=== PATIENT | male | born 1960 | race Caucasian/White ===

== ENCOUNTER 2016-04-21 09:55 | Emergency (ER) | payer MEDICAID ==
[~2016-04-21] VITALS: Ht 177.8 cm; Wt 90.7 kg
[~2016-04-21 09:55] MED LIST: ALBUTEROL SULF8.5 GM INH; AZITHROMYCIN250 MG ORAL; CIPROFLOXACIN750 MG ORAL; IBUPROFEN600 MG ORAL; IBUPROFEN800 MG ORAL; METRONIDAZOLE500 MG ORAL; NORCO 5-325 TA1 EACH ORAL; OMEPRAZOLE20 M2 ORAL; TRAMADOL HCL50 MG ORAL; VALIUM10 MG ORAL
[2016-04-21] MEDS ORDERED: Lidocaine 2% 20mg/ml/Epi 0.005mg/ml 20ml vial ONE (10:25)
[2016-04-21] MEDS ORDERED: Lidocaine 1% 10mg/ml/Epi 0.005mg/ml 30ml vial INJ ONE ×2 (10:25→11:00)
[2016-04-21] MEDS ORDERED: KEFLEX500 MG ORAL (10:46)
--- NOTE | 2016-04-21 10:52 | Emergency Room Report ---
History of Present Illness General Chief Complaint: Skin Rash/Abscess Source: Patient Present Illness HPI 55 YO M with pain/swelling for 5-6 days since self injection in lateral left thigh with testosterone. Has done multiple injections in past without issue. Denies fever/chills, history of DM or HIV or IVDU. Feels well otherwise. Allergies: Coded Allergies: No Known Allergies (Unverified , 04/04/14) Patient History Past Medical History: diverticulitis Past Surgical History: none Pertinent Family History: none Social History: Denies: alcohol use, drug use, smoking Immunizations: UTD Reviewed Nursing Documentation: PMH: Agreed Nursing Documentation-PMH Past Medical History: No History, Except For Hx Cardiac Problems: No Hx Hypertension: No Hx Pacemaker: No Hx Asthma: No Hx COPD: No Hx Diabetes: No Hx Cancer: No Hx Gastrointestinal Problems: Yes - diverticulities Hx Cerebrovascular Accident: No Hx Seizures: No Review of Systems All Other Systems: negative except mentioned in HPI Physical Exam Vital Signs Date Time Temp Pulse Resp B/P Pulse Ox O2 Delivery O2 Flow Rate FiO2 04/21/16 10:03 97.5 90 18 142/93 98 Room Air Sp02 EP Interpretation: reviewed, normal General Appearance: normal inspection, well appearing, no apparent distress, alert Head: atraumatic ENT: normal ENT inspection, hearing grossly normal, normal voice Neck: normal inspection, full range of motion, supple, no bony tend Respiratory: normal inspection, lungs clear, normal breath sounds, no respiratory distress, no retraction, no wheezing Cardiovascular #1: regular rate, rhythm, no edema Gastrointestinal: normal inspection, normal bowel sounds, non tender, soft, no guarding, no hernia Genitourinary: no CVA tenderness Musculoskeletal: normal inspection, back normal, normal range of motion, Cece' s Sign negative Neurologic: normal inspection, alert, responsive, speech normal Psychiatric: normal inspection, judgement/insight normal, mood/affect normal Skin: other - left lateral thigh: 5-6cm oval shaped area of ttp, fluctuance. No overlying erythema. Bedside sono shows large abscess 2cm deep with surrounding celluilitis Procedures Incision and Drainage Incision and Drainage : Consent: Verbal Blade Size: 11 I & D Procedure: betadine prep, sterile drapes applied, sterile dressing applied, gauze wick placed Wound Location: lower extremity Wound's Depth, Shape: superficial Wound Explored: clean Irrigated w/ Saline (ccs): 10 Anesthesia: Lidocaine w/ Epi Splint Applied?: No Sling Applied?: No Patient Tolerated: Well Complications: None Medical Decision Making Diagnostic Impression: Primary Impression: Abscess ER Course 55 YO M now s/p ultrasound-guided I&D of large left lateral thigh abscess with significant amount of purulent pus obtained. Serial ultrasound shows resolution of abscess with remaining cobblestoning appearing of tissue consistent with cellulitis Will Rx Keflex Advised return Sunday, Apr 24 for wound check and packing removal DC home Last Vital Signs Date Time Temp Pulse Resp B/P Pulse Ox O2 Delivery O2 Flow Rate FiO2 04/21/16 10:03 97.5 90 18 142/93 98 Room Air Status: improved Disposition: HOME, SELF-CARE Condition: Improved Scripts Cephalexin* (KEFLEX*) 500 Mg Capsule 500 MG ORAL Q6H for 7 Days, #28 CAP 0 Refills Prov: LUANA POLANCO M.D. 04/21/16 Additional Instructions: - Come back in 3 days on Sunday for wound check and for packing removal - Take ALL antibiotics - take with Siggis yoghurt - Take tylenol or ibuprofen for pain LUANA POLANCO M.D. Apr 21, 2016 10:52
[2016-04-21 10:59] VITALS: BP 137/88
== END 2016-04-21 11:02 | disposition home or self-care (01) ==
LOC: EMR 10:21
DX: L02.416 Cutaneous abscess of left lower limb (principal); Z87.19 Personal history of other diseases of the digestive system
CPT/HCPCS: 10060

== ENCOUNTER 2016-04-23 09:23 | Emergency (ER) | payer MEDICAID ==
[~2016-04-23] VITALS: Ht 177.8 cm; Wt 90.7 kg
[~2016-04-23 09:23] MED LIST changes: +KEFLEX500 MG ORAL
[2016-04-23 11:15] VITALS: BP 142/101
[2016-04-23] MEDS ORDERED: NORCO 5-325 TA1 EACH ORAL (11:31)
[2016-04-23] MEDS ORDERED: IBUPROFEN600 MG ORAL (11:31)
[2016-04-23] MEDS ORDERED: LEVAQUIN500 MG ORAL (11:31)
[2016-04-23 11:40] VITALS: BP 142/101
--- NOTE | 2016-04-23 21:12 | Emergency Room Report ---
History of Present Illness General Chief Complaint: Wound Recheck/Suture Removal Source: Patient Present Illness HPI Patient here for abscess repacking. Not tolerating bactrim well - upsets his stomach and gives nausea (no vomit). No fevers. Still with pain (no analgesia provided). No significant drainage. The abscess arose from self injection of testosterone. I and D done 04/21. Allergies: Coded Allergies: No Known Allergies (Unverified , 04/04/14) Patient History Past Medical History: see triage record, diverticulitis Social History: Denies: smoking Social History Narrative at home Reviewed Nursing Documentation: PMH: Agreed, PSxH: Agreed Nursing Documentation-PMH Hx Cardiac Problems: No Hx Hypertension: No Hx Pacemaker: No Hx Asthma: No Hx COPD: No Hx Diabetes: No Hx Cancer: No Hx Gastrointestinal Problems: Yes - diverticulities Hx Cerebrovascular Accident: No Hx Seizures: No Review of Systems Constitutional: Denies: fever Gastrointestinal: Reports: see HPI Musculoskeletal: Reports: see HPI Neurological: Denies: numbness Hematologic/Lymphatic: Denies: easy bleeding Physical Exam Vital Signs Date Time Temp Pulse Resp B/P Pulse Ox O2 Delivery O2 Flow Rate FiO2 04/23/16 09:53 97.9 83 18 142/101 98 Room Air Sp02 EP Interpretation: reviewed, normal General Appearance: well appearing, no apparent distress, GCS 15 Head: normocephalic, atraumatic Eyes: bilateral eye PERRL, bilateral eye normal inspection ENT: hearing grossly normal, normal voice, moist mucus membranes Neck: full range of motion, supple Respiratory: no respiratory distress, speaking full sentences Musculoskeletal: gait/station normal, normal range of motion, no calf tenderness Neurologic: alert, normal gait, grossly normal Psychiatric: mood/affect normal Skin: no rash, other - abscess L thigh. Packed with pus on gauze. Minimal erythema. Medical Decision Making Diagnostic Impression: Primary Impression: Encounter for wound re-check ER Course Patient with abscess repacking. Wound repacked. Tolerated well. Switch to levaquin as not tolerate bactrim well. Needs re-eval and possible repack 2 days. Patient stable for outpatient observation and treatment. Last Vital Signs Date Time Temp Pulse Resp B/P Pulse Ox O2 Delivery O2 Flow Rate FiO2 04/23/16 11:40 97.9 83 18 142/101 98 Room Air Status: improved Disposition: HOME, SELF-CARE Condition: Improved Scripts Hydrocodone Bit/Acetaminophen 5-325* (NORCO 5-325*) 1 Each Tablet 1 TAB ORAL Q4H Y for For Pain, #6 TAB 0 Refills Prov: Julio Gutierrez M.D. 04/23/16 Ibuprofen* (MOTRIN*) 600 Mg Tablet 600 MG ORAL Q6H Y for For Pain, #20 TAB Prov: Julio Gutierrez M.D. 04/23/16 Levofloxacin* (LEVAQUIN*) 500 Mg Tablet 500 MG ORAL DAILY, #7 TAB Prov: Julio Gutierrez M.D. 04/23/16 Referrals: [facility],REFERRING (PCP) Patient Instructions: Wound Check Additional Instructions: Return in 2 days to have the drain out (or replaced). Julio Gutierrez M.D. Apr 23, 2016 21:12
[2016-04-24] MEDS ORDERED: BENADRYL25 MG ORAL (19:02)
== END 2016-04-23 11:40 | disposition home or self-care (01) ==
LOC: EMR 10:21
DX: Z48.00 Encounter for change or removal of nonsurgical wound dressing (principal); L02.416 Cutaneous abscess of left lower limb
CPT/HCPCS: 99284

== ENCOUNTER 2016-04-24 17:51 | Emergency (ER) | payer MEDICAID ==
[~2016-04-24] VITALS: Ht 177.8 cm; Wt 90.7 kg
[~2016-04-24 17:51] MED LIST changes: +LEVAQUIN500 MG ORAL
--- NOTE | 2016-04-24 18:50 | Emergency Room Report ---
History of Present Illness General Chief Complaint: Skin Rash/Abscess Source: Patient Present Illness HPI 55-year-old male presents to the emergency department complaining of recently incised abscess of the left lateral thigh that had packing placed. Patient is requesting removal of the packing as he states it is causing him discomfort and mild itching. Patient reports improvement of his previous erythema. Denies itching or rashes elsewhere.denies wheezing, swelling of the lips or tongue. He denies increasing trouble patient denies fevers chills, or increased pain. Patient states the abscess usually occurred because he was injecting vitamin B 12. Patient denies history of immunocompromise. Patient reports mild discharge draining. Denies CP, Palpitations, LOC, AMS, dizziness, Changes in Vision, Sensation, paresthesias, or a sudden severe headache. Allergies: Coded Allergies: No Known Allergies (Unverified , 04/04/14) Patient History Past Medical History: see triage record Past Surgical History: none Pertinent Family History: none Immunizations: UTD Reviewed Nursing Documentation: PMH: Agreed, PSxH: Agreed Nursing Documentation-PMH Past Medical History: No History, Except For Hx Cardiac Problems: No Hx Hypertension: No Hx Pacemaker: No Hx Asthma: No Hx COPD: No Hx Diabetes: No Hx Cancer: No Hx Gastrointestinal Problems: Yes - diverticulities Hx Cerebrovascular Accident: No Hx Seizures: No Review of Systems All Other Systems: negative except mentioned in HPI Physical Exam Vital Signs Date Time Temp Pulse Resp B/P Pulse Ox O2 Delivery O2 Flow Rate FiO2 04/24/16 18:09 97.7 79 20 149/81 98 Room Air Sp02 EP Interpretation: reviewed, normal General Appearance: no apparent distress, alert, GCS 15, non-toxic Head: normocephalic, atraumatic Eyes: bilateral eye PERRL, bilateral eye normal inspection ENT: hearing grossly normal, normal pharynx, no angioedema, normal voice Neck: full range of motion, supple/symm/no masses Respiratory: chest non-tender, lungs clear, normal breath sounds, speaking full sentences Cardiovascular #1: regular rate, rhythm, no edema Gastrointestinal: no rebound Musculoskeletal: back normal, gait/station normal, normal range of motion, non- tender, no calf tenderness Neurologic: alert, oriented x3, responsive, motor strength/tone normal, sensory intact, speech normal Psychiatric: judgement/insight normal, memory normal, mood/affect normal, no suicidal/homicidal ideation Skin: normal color, warm/dry, well hydrated, wd healing/no infection noted - 1cm incision noted in the left lateral thigh with minimal erythema, wound packing is present with mild purulent d/c. , rash - mild erythema and excoriations noted to the area about the wound dressing, possible dermatitis from the tape. Lymphatic: no adenopathy Medical Decision Making PA Attestation Dr. Howard is my supervising Physician whom patient management has been discussed with. Diagnostic Impression: Primary Impression: Encounter for wound re-check ER Course Pt. presents to the ED c/o pain, swelling, and erythema of left Thigh S/P I & D three days ago. pt. wants wound packing removed as it is irritating him. Ddx considered but are not limited to cellulitis, abscess, cystic acne, necrotizing fasciitis, insect bite. Vital signs: are WNL, pt. is afebrile H&PE are most consistent with healing previously incised abscess. ORDERS: none required at this time, the diagnosis is clinical ED INTERVENTIONS: -wound packing removed. -Sterile dressing applied. d/w pt. to continue taking po abx and to look for signs of infection . DISCHARGE: At this time pt. is stable for d/c to home. Will provide printed patient care instructions, and any necessary prescriptions. Care plan and follow up instructions have been discussed with the patient prior to discharge. Last Vital Signs Date Time Temp Pulse Resp B/P Pulse Ox O2 Delivery O2 Flow Rate FiO2 04/24/16 18:09 97.7 79 20 149/81 98 Room Air Disposition: HOME, SELF-CARE Condition: Stable Scripts Diphenhydramine Hcl* (BENADRYL*) 25 Mg Capsule 25 MG ORAL Q6H Y for Itching, #30 CAP Prov: Renetta Gasca 04/24/16 Referrals: [facility],REFERRING (PCP) Patient Instructions: Wound Packing Additional Instructions: Take medications as directed. Follow up with PCP in 3-5 days Return sooner to ED if new symptoms occur, or current symptoms become worse. Renetta Gasca Apr 24, 2016 18:50
[2016-04-24] MEDS ORDERED: BENADRYL25 MG ORAL (19:02)
[2016-04-24 19:10] VITALS: BP 149/81
== END 2016-04-24 19:10 | disposition home or self-care (01) ==
LOC: EMR 18:17
DX: Z48.00 Encounter for change or removal of nonsurgical wound dressing (principal); L02.416 Cutaneous abscess of left lower limb
CPT/HCPCS: 99283

== ENCOUNTER 2016-07-25 15:08 | Emergency (ER) | payer MEDICAID ==
[~2016-07-25] VITALS: Ht 177.8 cm; Wt 90.7 kg
[~2016-07-25 15:08] MED LIST changes: +BENADRYL25 MG ORAL
[2016-07-25 15:19] VITALS: BP 146/85
--- NOTE | 2016-07-25 15:54 | Emergency Room Report ---
History of Present Illness General Chief Complaint: Earache Present Illness HPI 56-year-old male presents emergency department complaining of lites discharge on the tongue x2 days in addition to it she years bilaterally. Patient also reports itchy rash to the left posterior heel times one week. Patient reports history of oral thrush and fungal otitis externa. Patient states his symptoms feel similar as last time and he is unable to get an appointment with his PCP. She denies fevers, chills, nausea, vomiting, no contacts or recent travel. She denies history of immunocompromise, or history of diabetes. Denies rash elsewhere on the body . Denies CP, Palpitations, LOC, AMS, dizziness, Changes in Vision, Sensation, paresthesias, or a sudden severe headache. Allergies: Coded Allergies: No Known Allergies (Unverified , 04/04/14) Patient History Past Medical History: see triage record Past Surgical History: none Pertinent Family History: none Immunizations: UTD Reviewed Nursing Documentation: PMH: Agreed, PSxH: Agreed Nursing Documentation-PMH Hx Cardiac Problems: No Hx Hypertension: No Hx Pacemaker: No Hx Asthma: No Hx COPD: No Hx Diabetes: No Hx Cancer: No Hx Gastrointestinal Problems: Yes - diverticulities Hx Cerebrovascular Accident: No Hx Seizures: No Review of Systems All Other Systems: negative except mentioned in HPI Physical Exam Vital Signs Date Time Temp Pulse Resp B/P Pulse Ox O2 Delivery O2 Flow Rate FiO2 07/25/16 15:18 98.1 86 20 146/85 96 Room Air Sp02 EP Interpretation: reviewed, normal General Appearance: no apparent distress, alert, GCS 15, non-toxic Head: normocephalic, atraumatic Eyes: bilateral eye PERRL, bilateral eye normal inspection ENT: hearing grossly normal, normal pharynx, no angioedema, normal voice, uvula midline, moist mucus membranes, other - otitis externa, fungal due to white d/c appearance and co-existing oral candidiasis, pt. has hx of candidiasis in past, white plaque on posterior tongue that is easily removed. Neck: full range of motion, supple/symm/no masses Respiratory: chest non-tender, lungs clear, normal breath sounds, speaking full sentences Cardiovascular #1: regular rate, rhythm, no edema, normal capillary refill Gastrointestinal: normal bowel sounds, non tender, soft, no guarding, no rebound Rectal: deferred Genitourinary: normal inspection, no CVA tenderness Musculoskeletal: back normal, gait/station normal, normal range of motion, non- tender, no calf tenderness Neurologic: alert, oriented x3, responsive, motor strength/tone normal, sensory intact, speech normal Psychiatric: judgement/insight normal, memory normal, mood/affect normal Skin: normal color, warm/dry, well hydrated, rash - annular lesion on the left posterior heel 2cm in diameter dry/flaky in appearance no d/c or evidence of infection noted Lymphatic: no adenopathy Medical Decision Making PA Attestation Dr. oritz is my supervising Physician whom patient management has been discussed with. Diagnostic Impression: Primary Impression: Otitis externa, fungal Additional Impressions: Oral candidiasis History of oral candidiasis Tinea pedis, left ER Course 56-year-old male presents emergency department complaining of lites discharge on the tongue x2 days in addition to it she years bilaterally. Patient also reports itchy rash to the left posterior heel times one week. Patient reports history of oral thrush and fungal otitis externa. Patient states his symptoms feel similar as last time and he is unable to get an appointment with his PCP. She denies fevers, chills, nausea, vomiting, no contacts or recent travel. She denies history of immunocompromise, or history of diabetes. Denies rash elsewhere on the body. Ddx considered but are not limited to OM, OE, mastoiditis, TM perforation, FB Vital signs: are WNL, pt. is afebrile H&PE are most consistent with otitis externa, fungal due to white d/c appearance and co-existing oral candidiasis, pt. has hx of candidiasis in past, white plaque on posterior tongue that is easily removed. and annular lesion on the left posterior heel 2cm in diameter dry/flaky in appearance no d/c or evidence of infection noted. ORDERS: none required at this time, the diagnosis is clinical -d/w pt. importance of full evaluation by PCP, and typical candidiasis is an opportunistic infection. pt. denies inhaled steroid use or HIV, pt. states having difficulty with making appts with his previous PCP, and was given list of free/reduced cost medical clinics to follow up at. d/w pt. to return with worsening or new symptoms. ED INTERVENTIONS: -150mg Diflucan PO DISCHARGE: At this time pt. is stable for d/c to home. With Otic ABX. Will provide printed patient care instructions, and any necessary prescriptions. Care plan and follow up instructions have been discussed with the patient prior to discharge. Last Vital Signs Date Time Temp Pulse Resp B/P Pulse Ox O2 Delivery O2 Flow Rate FiO2 07/25/16 15:19 98.1 20 146/85 96 Room Air 07/25/16 15:18 86 Disposition: HOME, SELF-CARE Condition: Stable Scripts Terbinafine (Lamisil At) 12 Gm Cream..g. 1 APPLIC TP BID, #12 GM Prov: Renetta Gasca 07/25/16 Acetic Acid (ACETIC ACID) 15 Ml Solution 3 DROP BOTH EARS FOUR TIMES A DAY for 7 Days, #15 ML Prov: Renetta Gasca 07/25/16 Fluconazole (FLUCONAZOLE) 100 Mg Tablet 100 MG ORAL DAILY for 7 Days, #7 TAB 0 Refills Prov: Renetta Gasca 07/25/16 Referrals: [facility],REFERRING (PCP) Patient Instructions: Otitis Externa, [id number], Thrush, Adult, [id number] Additional Instructions: Take medications as directed. Follow up with PCP in 3-5 days Return sooner to ED if new symptoms occur, or current symptoms become worse. *!* Review provided list of free or reduced cost health clinics for follow up * !* - Please note that this Emergency Department Report was dictated using [employer] systems engineer technology software, occasionally this can lead to erroneous entry secondary to interpretation by the dictation equipment. Renetta Gasca July 25, 2016 15:54
[2016-07-25] MEDS ORDERED: Fluconazole 100mg tab ORAL ONE (16:00)
[2016-07-25] MEDS ORDERED: ACETIC ACID15 ML BOTH EARS (16:01)
[2016-07-25] MEDS ORDERED: FLUCONAZOLE100 MG ORAL (16:01)
[2016-07-25] MEDS ORDERED: LAMISIL AT24 GM TP (16:01)
[2016-07-25 16:15] VITALS: BP 146/85
== END 2016-07-25 16:15 | disposition home or self-care (01) ==
LOC: EMR 15:27
DX: H60.8X9 Other otitis externa, unspecified ear (principal); H60.90 Unspecified otitis externa, unspecified ear; B37.9 Candidiasis, unspecified; B35.3 Tinea pedis
CPT/HCPCS: 99284

== ENCOUNTER 2016-07-28 06:51 | Emergency (ER) | payer MEDICAID ==
[~2016-07-28] VITALS: Ht 177.8 cm; Wt 90.7 kg
[~2016-07-28 06:51] MED LIST changes: +ACETIC ACID15 ML BOTH EARS; +FLUCONAZOLE100 MG ORAL; +LAMISIL AT24 GM TP
[2016-07-28 07:07] VITALS: BP 142/96
[2016-07-28] MEDS ORDERED: IBUPROFEN600 MG ORAL (07:13)
[2016-07-28] MEDS ORDERED: CORTISPORIN EAR10 ML OTIC (07:13)
--- NOTE | 2016-07-28 07:18 | Emergency Room Report ---
History of Present Illness General Chief Complaint: Earache Source: Patient Present Illness HPI Patient presents with complaints of right ear pain Reports that he feels his hearing has decreased Also reports developing a headache on that side Denies any fevers or chills Denies any posterior neck pain Denies any discharge patient reports that he was here several days ago Was given drops for his ear He was found to have thrush on his time And possibly was treated for fungal infection of the ear He reports that he was cleaning his ear with a Q-tip when he felt increased impaction and discomfort Allergies: Coded Allergies: No Known Allergies (Unverified , 04/04/14) Patient History Past Medical History: see triage record Pertinent Family History: none Reviewed Nursing Documentation: PMH: Agreed, PSxH: Agreed Nursing Documentation-PMH Hx Cardiac Problems: No Hx Hypertension: No Hx Pacemaker: No Hx Asthma: No Hx COPD: No Hx Diabetes: No Hx Cancer: No Hx Gastrointestinal Problems: Yes - diverticulities Hx Cerebrovascular Accident: No Hx Seizures: No Review of Systems All Other Systems: negative except mentioned in HPI Physical Exam Vital Signs Date Time Temp Pulse Resp B/P Pulse Ox O2 Delivery O2 Flow Rate FiO2 07/28/16 06:54 97.7 79 18 142/96 96 Room Air Sp02 EP Interpretation: reviewed, normal General Appearance: well appearing, no apparent distress Head: normocephalic, atraumatic Eyes: bilateral eye EOMI, bilateral eye PERRL ENT: other - Right ear impaction with cerumen, canal is also erythematous and appears irritated, Neck: supple, thyroid normal Respiratory: lungs clear, normal breath sounds Musculoskeletal: normal inspection Neurologic: normal inspection, alert, oriented x3 Skin: normal color, warm/dry Lymphatic: normal inspection Medical Decision Making Diagnostic Impression: Primary Impression: otitis externa Additional Impression: cerumen impaction ER Course Patient presents secondary otitis externa There is also evidence of impaction Patient was given home instructions for the cerumen impaction Which is likely causing some of the hearing problems, also ointment drops for the otitis externa Last Vital Signs Date Time Temp Pulse Resp B/P Pulse Ox O2 Delivery O2 Flow Rate FiO2 07/28/16 07:07 97.7 84 18 142/96 96 Room Air Status: unchanged Disposition: HOME, SELF-CARE Condition: Stable Scripts Neomycin/Polymyxin B Sulf/Hc* (CORTISPORIN EAR SOLUTION*) 10 Ml Solution 2 DROP OTIC FOUR TIMES A DAY for 7 Days, #1 EA Instill in affected ear as directed for 7 days Prov: IVAN BOOTH D.O. 07/28/16 Ibuprofen* (MOTRIN*) 600 Mg Tablet 600 MG ORAL Q8H Y for For Pain, #20 TAB 0 Refills Prov: IVAN BOOTH D.O. 07/28/16 Patient Instructions: Cerumen Impaction, Otitis Externa, [id number] Additional Instructions: Patient is provided with the discharge instructions notified to follow up with primary doctor in the next 2-3 days otherwise return to the er with any worsening symptoms. Please note that this report is being documented using [employer] technology. This can lead to erroneous entry secondary to incorrect interpretation by the dictating instrument. IVAN BOOTH D.O. July 28, 2016 07:18
[2016-07-28 07:19] VITALS: BP 142/96
== END 2016-07-28 07:27 | disposition home or self-care (01) ==
LOC: EMR 07:15
DX: H60.91 Unspecified otitis externa, right ear (principal); H61.21 Impacted cerumen, right ear
CPT/HCPCS: 99284

== ENCOUNTER 2016-08-01 08:21 | Emergency (ER) | payer MEDICAID ==
[~2016-08-01] VITALS: Ht 177.8 cm; Wt 90.7 kg
[~2016-08-01 08:21] MED LIST changes: +CORTISPORIN EAR10 ML OTIC
[2016-08-01] MEDS ORDERED: DEBROX15 M1 RIGHT EAR (08:41)
[2016-08-01] MEDS ORDERED: CORTISPORIN EAR10 ML RIGHT EAR (08:42)
[2016-08-01] MEDS ORDERED: Fluconazole 100mg tab ORAL ONE (08:45)
--- NOTE | 2016-08-01 08:54 | Emergency Room Report ---
History of Present Illness General Chief Complaint: Earache Source: Patient Present Illness HPI Patient is a 56-year-old male presented after increased right earache. The patient had gradual onset of symptoms. He had intermittent symptoms over the past 2 days. Patient had previously been seen for similar symptoms. He was started on Cortisporin ear drops. The patient was noted to have some difficulty hearing. He denied any fever. He reported having some white lesions to his tongue. Allergies: Coded Allergies: No Known Allergies (Unverified , 04/04/14) Patient History Past Medical History: see triage record Reviewed Nursing Documentation: PMH: Agreed, PSxH: Agreed Nursing Documentation-PMH Past Medical History: No Stated History Hx Cardiac Problems: No Hx Hypertension: No Hx Pacemaker: No Hx Asthma: No Hx COPD: No Hx Diabetes: No Hx Cancer: No Hx Gastrointestinal Problems: Yes - diverticulities Hx Cerebrovascular Accident: No Hx Seizures: No Review of Systems All Other Systems: negative except mentioned in HPI Physical Exam Vital Signs Date Time Temp Pulse Resp B/P Pulse Ox O2 Delivery O2 Flow Rate FiO2 08/01/16 08:25 98.2 74 14 123/80 98 Room Air General Appearance: well appearing, no apparent distress, alert, GCS 15, non- toxic Head: normocephalic, atraumatic ENT: hearing grossly normal, normal voice, other - right ear canal swelling, cerumen Neck: full range of motion, supple Respiratory: no respiratory distress, speaking full sentences Musculoskeletal: no calf tenderness Neurologic: normal gait Psychiatric: mood/affect normal Skin: no rash Medical Decision Making Diagnostic Impression: Primary Impression: Otitis externa Additional Impression: Oral thrush ER Course Patient presented for ear pain. Differential diagnosis included was not limited to otitis media, malignant otitis externa, foreign body, cellulitis, mastoiditis, carotid dissection, myocardial infarction among others. Patient' s benign exam and does not appear to require any further imaging or laboratory testing at this time. Patient was given Debrox prescription. Some ear wax was removed with a curette. The patient tolerated well and there is no bleeding after removal.The patient is advised to follow up with primary care doctor in 2 -3 days Patient is advised to return if any worsening condition or if any changes in status that are concerning. Last Vital Signs Date Time Temp Pulse Resp B/P Pulse Ox O2 Delivery O2 Flow Rate FiO2 08/01/16 08:25 98.2 74 14 123/80 98 Room Air Status: improved Disposition: HOME, SELF-CARE Condition: Stable Scripts Neomycin/Polymyxin B Sulf/Hc* (CORTISPORIN EAR SOLUTION*) 10 Ml Solution 4 DROP RIGHT EAR QID, #10 ML 0 Refills Prov: Ethan Obrien 08/01/16 Carbamide Peroxide (DEBROX) 15 Ml Drops 5 DROP RIGHT EAR TWICE A DAY for 4 Days, ML 0 Refills Prov: Ethan Obrien 08/01/16 Patient Instructions: Otitis Externa, [id number] Ethan Obrien August 01, 2016 08:54
[2016-08-01 09:05] VITALS: BP 123/80
== END 2016-08-01 09:05 | disposition home or self-care (01) ==
LOC: EMR 08:50
DX: H60.91 Unspecified otitis externa, right ear (principal); B37.0 Candidal stomatitis
CPT/HCPCS: 99284

== ENCOUNTER 2016-08-30 06:14 | Emergency (ER) | payer MEDICAID ==
[~2016-08-30] VITALS: Ht 177.8 cm; Wt 90.7 kg
[~2016-08-30 06:14] MED LIST changes: +CORTISPORIN EAR10 ML RIGHT EAR; +DEBROX15 M1 RIGHT EAR
[2016-08-30 06:35] VITALS: BP 162/116
[2016-08-30] MEDS ORDERED: FAMOTIDINE10 MG ORAL (06:36)
[2016-08-30] MEDS ORDERED: PEPCID20 MG ORAL (06:41)
[2016-08-30] MEDS ORDERED: LEVOFLOXACIN750 MG ORAL (06:41)
[2016-08-30] MEDS ORDERED: METRONIDAZOLE500 MG ORAL (06:41)
[2016-08-30] MEDS ORDERED: Fluconazole 100mg tab ORAL ONE (06:45)
--- NOTE | 2016-08-30 07:01 | Emergency Room Report ---
History of Present Illness General Chief Complaint: Abdominal Pain Source: Patient Present Illness HPI 56YOM walk-in with 2 weeks intermittent left lower abd pain, sharp, radiating to back, 6/10. Associated with alternating diarrhea, constipation, weakness, dark stools. No roberto carlos bleeding from rectum. No fever/chills. No urinary complaints. History of diverticulitis. Last colonoscopy 2 years ago. Previously successfully treated with levo/flagyl. No history of abscess. Also , c/o "white plaques" to inside of mouth that he "bit off" and now they're bleeding. No steroid use. No recent antibiotics. Denies HIV. Also, c/o acid reflux, worse at night when lying down, pain is "shooting up chest". Worse with spicy food, coffee, soda. Doesnt have medication for it. Doesnt have PMD. Allergies: Coded Allergies: No Known Allergies (Unverified , 04/04/14) Patient History Past Medical History: GERD, diverticulitis, other - acid reflux Past Surgical History: none Pertinent Family History: none Social History: Denies: alcohol use, drug use, smoking Immunizations: UTD Reviewed Nursing Documentation: PMH: Agreed, PSxH: Agreed Nursing Documentation-PMH Past Medical History: No History, Except For Hx Cardiac Problems: No Hx Hypertension: No Hx Pacemaker: No Hx Asthma: No Hx COPD: No Hx Diabetes: No Hx Cancer: No Hx Gastrointestinal Problems: Yes - diverticulities Hx Cerebrovascular Accident: No Hx Seizures: No Review of Systems All Other Systems: negative except mentioned in HPI Physical Exam Vital Signs Date Time Temp Pulse Resp B/P Pulse Ox O2 Delivery O2 Flow Rate FiO2 08/30/16 06:21 97.2 75 19 164/109 98 Room Air Sp02 EP Interpretation: reviewed, abnormal General Appearance: normal inspection, well appearing, no apparent distress, alert, GCS 15, non-toxic Head: normocephalic, atraumatic Eyes: bilateral eye EOMI, bilateral eye PERRL ENT: normal ENT inspection, hearing grossly normal, normal pharynx, no angioedema, normal voice, other - scattered white plaques Neck: normal inspection, full range of motion, supple, no bony tend Respiratory: normal inspection, lungs clear, normal breath sounds, no respiratory distress, no retraction, no wheezing Cardiovascular #1: regular rate, rhythm, no edema Gastrointestinal: normal inspection, normal bowel sounds, soft, non-distended, no guarding, no hernia, other - Mild left sided lower abd ttp. No ecchymoses, rebound, guarding Genitourinary: no CVA tenderness Musculoskeletal: normal inspection, back normal, normal range of motion, Cece' s Sign negative Neurologic: normal inspection, alert, oriented x3, responsive, toe pounder III-XII nml as tested, motor strength/tone normal, speech normal Psychiatric: normal inspection, judgement/insight normal, mood/affect normal Skin: normal inspection, normal color, no rash Lymphatic: normal inspection Medical Decision Making Diagnostic Impression: Primary Impression: Diverticulitis Qualified Codes: K57.92 - Diverticulitis of intestine, part unspecified, without perforation or abscess without bleeding Additional Impressions: Oral bleeding Gastritis Qualified Codes: K29.50 - Unspecified chronic gastritis without bleeding ER Course RLQ abd pain, alternating constipation/diarrhea/weakness/dark stool - History of diverticulitis - C/w clinical diverticulitis - Offered to IV, llab testing, CTAP. Patient refused "doesnt want more radiation." - In shared decision making, patient is afebrile, VS are stable, no surgical abdomen - agree with PO Levo and Flagyl - Understands to return to ER for worsening pain, vomiting, fever/chills - Otherwise PMD followup White plaques in mouth - One time dose of Fluconazole given in ED Gastritis - Rx Pepcid, - DC information DC home Last Vital Signs Date Time Temp Pulse Resp B/P Pulse Ox O2 Delivery O2 Flow Rate FiO2 08/30/16 06:35 97.2 68 11 162/116 98 Room Air Status: improved Disposition: HOME, SELF-CARE Condition: Improved Scripts Famotidine (PEPCID) 20 Mg Tablet 20 MG ORAL BID for 7 Days, #14 TAB 0 Refills Prov: LUANA POLANCO M.D. 08/30/16 Metronidazole* (FLAGYL*) 500 Mg Tablet 500 MG ORAL THREE TIMES A DAY for 7 Days, #21 TAB Prov: LUANA POLANCO M.D. 08/30/16 Levofloxacin* (LEVOFLOXACIN*) 750 Mg Tablet 750 MG ORAL DAILY for 7 Days, #7 TAB Prov: LUANA POLANCO M.D. 08/30/16 Referrals: [facility],REFERRING (PCP) Patient Instructions: Gastritis, Adult, [id number], Diverticulitis, Easy-to- Read Additional Instructions: Diverticulitis - Take ALL the antibiotics - Metronidazole and Levo - until finished. DO NOT DRINK ALCOHOL WHILE TAKING OR YOU WILL HAVE SEVERE ALLERGIC REACTION Acid reflux/GERD - Take pepcid twice daily for 1 week return to ER for worsening abdominal pain, fever/chills, vomiting LUANA POLANCO M.D. Aug 30, 2016 07:01
[2016-08-30 07:03] VITALS: BP 162/116
== END 2016-08-30 07:04 | disposition home or self-care (01) ==
LOC: EMR 06:37
DX: K57.32 Diverticulitis of large intestine without perforation or abscess without bleeding (principal); K29.70 Gastritis, unspecified, without bleeding; K06.8 Other specified disorders of gingiva and edentulous alveolar ridge; K21.9 Gastro-esophageal reflux disease without esophagitis
CPT/HCPCS: 99284

== ENCOUNTER 2017-04-21 22:59 | Emergency (ER) | payer MEDICAID ==
[~2017-04-21] VITALS: Ht 177.8 cm; Wt 95.3 kg
[~2017-04-21 22:59] MED LIST changes: +FAMOTIDINE10 MG ORAL; +LEVOFLOXACIN750 MG ORAL; +PEPCID20 MG ORAL
[2017-04-21] MEDS ORDERED: RANITIDINE HCL150 MG ORAL (23:26)
[2017-04-21 23:30] VITALS: BP 149/97
--- NOTE | 2017-04-22 00:33 | Emergency Room Report ---
History of Present Illness General Chief Complaint: Upper Extremity Injury Source: Patient Present Illness HPI 56YOM with accidental dislocation allegedly of right thumb he's right handed Was reaching for something, dislocate,d popped it back in Then went to unzip his pants, re-dislocated it and popped it back again C/o reduced ROM at base of thumb with pain still Allergies: Coded Allergies: No Known Allergies (Unverified , 04/21/17) Patient History Past Medical History: none Past Surgical History: none Pertinent Family History: none Social History: Denies: smoking, alcohol use, drug use Immunizations: UTD Reviewed Nursing Documentation: PMH: Agreed, PSxH: Agreed Nursing Documentation-PMH Past Medical History: No History, Except For Hx Cardiac Problems: No Hx Hypertension: No Hx Pacemaker: No Hx Asthma: No Hx COPD: No Hx Diabetes: No Hx Cancer: No Hx Gastrointestinal Problems: Yes - diverticulities Hx Cerebrovascular Accident: No Hx Seizures: No Review of Systems All Other Systems: negative except mentioned in HPI Physical Exam Vital Signs Date Time Temp Pulse Resp B/P (MAP) Pulse Ox O2 Delivery O2 Flow Rate FiO2 04/21/17 23:21 97.7 86 16 149/97 96 Room Air Sp02 EP Interpretation: reviewed, normal General Appearance: normal inspection, well appearing, no apparent distress, alert, GCS 15, non-toxic Head: normocephalic, atraumatic Eyes: bilateral eye PERRL, bilateral eye EOMI ENT: normal ENT inspection, hearing grossly normal, normal pharynx, no angioedema, normal voice, TMs + canals normal, uvula midline, moist mucus membranes Neck: normal inspection, full range of motion, supple, thyroid normal, no meningismus, no bony tend Respiratory: normal inspection, lungs clear, normal breath sounds, no rhonchi, no respiratory distress, no retraction, no accessory muscle use, no wheezing, speaking full sentences Cardiovascular #1: regular rate, rhythm, no edema, no JVD, normal capillary refill Gastrointestinal: normal inspection, normal bowel sounds, non tender, soft, no mass, no peritonitis, non-distended, no guarding, no hernia, no pulsatile mass Genitourinary: no CVA tenderness Musculoskeletal: normal inspection, back normal, normal range of motion, no calf tenderness, pelvis stable, Cece's Sign negative, other - Right hand: swelling at base of thumb. DIP ROM intact. Reduced ROM at base d/t pain Neurologic: normal inspection, alert, oriented x3, responsive, technical rep III-XII nml as tested, motor strength/tone normal, cerebellar normal, normal gait, speech normal Psychiatric: normal inspection, judgement/insight normal, mood/affect normal, no suicidal/homicidal ideation, no delusions Skin: normal inspection, normal color, no rash Lymphatic: normal inspection, no adenopathy Medical Decision Making Diagnostic Impression: Primary Impression: Pain of right thumb ER Course Acute pain to the base of right thumb, status post possible multiple spontaneous dislocation and reduction by patient X-ray negative for acute fracture or dislocation There is significant amount of swelling at base so a splint was placed Advise reduced range of motion until completely healed, NSAIDs as needed ER course: Patient has remained stable during ED stay. Disposition: Patient is to be discharged to home. Prescriptions given are motrin Patient is instructed to follow up with their primary care doctor within 5 days. Strict return precautions discussed with patient such as fever, chills, worsening/severe pain, nausea, vomiting, which may indicate severe illness. Patient verbalizes understanding and agrees with plan. Please note that this Emergency Department Report was dictated using Live [employer] engineer technology software, occasionally this can lead to erroneous entry secondary to interpretation by the dictation equipment Chest X-Ray Diagnostic Results Chest X-Ray Diagnostic Results : Chest X-Ray Ordered: Yes Other X-Ray Diagnostic Results Other X-Ray Diagnostic Results : X-Ray ordered: Right hand # of Views/Limited Vs Complete: 3 View Indication: Pain EP Interpretation: Yes Interpretation: no dislocation, no soft tissue swelling, no fractures Impression: No acute disease Electronically Signed by: Dr Luana Polanco MD Last Vital Signs Date Time Temp Pulse Resp B/P (MAP) Pulse Ox O2 Delivery O2 Flow Rate FiO2 04/21/17 23:21 97.7 86 16 149/97 96 Room Air Status: improved Disposition: HOME, SELF-CARE Referrals: [facility],REFERRING (PCP) LUANA POLANCO M.D. Apr 22, 2017 00:33
[2017-04-22] MEDS ORDERED: IBUPROFEN600 MG ORAL (00:35)
[2017-04-22 00:45] VITALS: BP 149/97
--- NOTE | 2017-04-22 10:14 | Diagnostic Imaging Report ---
Indication: Pain Technique: XRAY Hand Complete R Comparison: 04/04/2014 Findings: Suboptimal positioning on lateral radiographs. Remote/healed fracture deformity of the fifth metacarpal. No acute fracture identified. Joint spaces and alignment preserved. No focal soft tissue abnormality appreciated. No radiopaque foreign body seen. Impression: Limited exam. Remote/healed fracture deformity of the fifth metacarpal. No definite acute fracture. No dislocation.
== END 2017-04-22 00:45 | disposition home or self-care (01) ==
LOC: EMR 23:49
DX: M79.644 Pain in right finger(s) (principal); K57.90 Diverticulosis of intestine, part unspecified, without perforation or abscess without bleeding
CPT/HCPCS: 99283

== ENCOUNTER 2017-08-28 13:13 | Emergency (ER) | payer MEDICAID ==
[~2017-08-28] VITALS: Ht 177.8 cm; Wt 95.3 kg
[~2017-08-28 13:13] MED LIST changes: +RANITIDINE HCL150 MG ORAL
[2017-08-28 13:38] VITALS: BP 157/111
--- NOTE | 2017-08-28 14:16 | Emergency Room Report ---
History of Present Illness General Chief Complaint: General Complaint Source: Patient Present Illness HPI Patient is a 57-year-old male who presents to the ED with complaints of cough for the last 6 months. He states the cough has been intermittent with some intermittent subjective fever. He states it all began with a left sided otitis media which she treated with antibiotics. He has not followed up with his primary doctor regarding the cough. Denies any nausea, vomiting, sore throat or associated symptoms. He has no significant medical problems and denies tobacco, alcohol or drug use. Allergies: Coded Allergies: No Known Allergies (Unverified , 04/21/17) Patient History Reviewed Nursing Documentation: PMH: Agreed; PSxH: Agreed Nursing Documentation-PMH Past Medical History: No History, Except For Hx Cardiac Problems: No Hx Hypertension: No Hx Pacemaker: No Hx Asthma: No Hx COPD: No Hx Diabetes: No Hx Cancer: No Hx Gastrointestinal Problems: Yes - diverticulities, cholesectomy Hx Cerebrovascular Accident: No Hx Seizures: No Review of Systems Respiratory: Reports: cough All Other Systems: negative except mentioned in HPI Physical Exam Vital Signs Date Time Temp Pulse Resp B/P (MAP) Pulse Ox O2 Delivery O2 Flow Rate FiO2 08/28/17 13:22 97.8 90 20 157/111 95 Room Air 97.9 Sp02 EP Interpretation: reviewed, normal General Appearance: no apparent distress, alert, GCS 15, non-toxic Head: normocephalic, atraumatic Eyes: bilateral eye normal inspection, bilateral eye PERRL ENT: hearing grossly normal, normal pharynx, no angioedema, normal voice Neck: full range of motion, supple/symm/no masses Respiratory: chest non-tender, lungs clear, normal breath sounds, speaking full sentences Cardiovascular #1: regular rate, rhythm, no edema Cardiovascular #2: 2+ carotid (R), 2+ carotid (L), 2+ radial (R), 2+ radial (L) , 2+ dorsalis pedis (R), 2+ dorsalis pedis (L) Gastrointestinal: normal bowel sounds, non tender, soft, non-distended, no guarding, no rebound Rectal: deferred Genitourinary: normal inspection, no CVA tenderness Musculoskeletal: back normal, gait/station normal, normal range of motion, non- tender, calf tenderness Neurologic: alert, oriented x3, responsive, motor strength/tone normal, sensory intact, speech normal Psychiatric: judgement/insight normal, memory normal, mood/affect normal, no suicidal/homicidal ideation Reflexes: 3+ bicep (R), 3+ bicep (L), 3+ tricep (R), 3+ tricep (L), 3+ knee (R) , 3+ knee (L) Skin: normal color, no rash, warm/dry, well hydrated Lymphatic: no adenopathy Medical Decision Making PA Attestation Supervising physician is Dr. Gutierrez Reaction to Intervention: Improved Diagnostic Impression: Primary Impression: Productive cough ER Course Chest x-ray is within normal limits, no evidence of pneumonia. We'll treat with antibiotics based on duration and severity of symptoms. Patient also complaining of a surgical hernia which is easily reducible in the ED. Instructed to follow up with PCP for further evaluation and management of this. Patient understands plan and is agreeable. Chest X-Ray Diagnostic Results Chest X-Ray Diagnostic Results : Chest X-Ray Ordered: Yes # of Views/Limited/Complete: 1 View Indication: Chest Pain EP Interpretation: Yes PA Xray: Interpretation reviewed, by supervising MD, and agrees with findings. Interpretation: no consolidation, no effusion, no pneumothorax Impression: No acute disease Last Vital Signs Date Time Temp Pulse Resp B/P (MAP) Pulse Ox O2 Delivery O2 Flow Rate FiO2 08/28/17 13:38 97.9 90 20 157/111 95 Room Air 97.9 Status: improved Disposition: HOME, SELF-CARE Condition: Stable Scripts Azithromycin* (ZITHROMAX*) 250 Mg Tablet 250 MG ORAL DAILY, #6 TAB 0 Refills Take two tables once daily for 1 day, then one tablet once daily for 4 days. Prov: Linda Beasley 08/28/17 Patient Instructions: Cough, Adult, [id number] Linda Beasley Aug 28, 2017 14:16
--- NOTE | 2017-08-28 15:06 | Diagnostic Imaging Report ---
Indication: Cough Technique: One view of the chest Comparison: 08/25/2014 Findings: Lungs and pleural spaces are clear. Heart size is normal . No significant change Impression: No acute process
[2017-08-28] MEDS ORDERED: ZITHROMAX250 MG ORAL (15:33)
[2017-08-28 15:38] VITALS: BP 150/90
== END 2017-08-28 15:41 | disposition home or self-care (01) ==
LOC: EMR 13:58
DX: R05 Cough (principal)
CPT/HCPCS: 71045; 99283

== ENCOUNTER 2017-09-28 09:14 | Emergency (ER) | payer MEDICAID ==
[~2017-09-28] VITALS: Ht 177.8 cm; Wt 95.3 kg
[~2017-09-28 09:14] MED LIST changes: +ZITHROMAX250 MG ORAL
[2017-09-28 09:27] VITALS: BP 147/97
[2017-09-28] MEDS ORDERED: Ipratropium 0.02% Inh Soln 2.5ml UD HHN ONE (09:45)
[2017-09-28] MEDS ORDERED: Norco 5mg/325mg tab PO ONE (09:45)
[2017-09-28] MEDS ORDERED: Albuterol ud Inhalation HHN ONE (09:45)
--- NOTE | 2017-09-28 10:17 | Emergency Room Report ---
History of Present Illness General Chief Complaint: Pain Source: Patient Present Illness HPI 57-year-old male presents ED complaining of left rib pain. States that he fell from his ladder and landed on the ground hitting a bucket. Complaining of left- sided rib pain. Denies any other injuries. Denies hitting his head or LOC. Pain is 8 out of 10, sharp, nonradiating. Worse with deep breaths. No other aggravating relieving factors. Denies any other associated symptoms Allergies: Coded Allergies: No Known Allergies (Unverified , 04/21/17) Patient History Past Medical History: other - diverticulitis Past Surgical History: andrew Pertinent Family History: none Social History: Denies: smoking, alcohol use, drug use Immunizations: UTD Reviewed Nursing Documentation: PMH: Agreed; PSxH: Agreed Nursing Documentation-PMH Hx Cardiac Problems: No Hx Hypertension: No Hx Pacemaker: No Hx Asthma: No Hx COPD: No Hx Diabetes: No Hx Cancer: No Hx Gastrointestinal Problems: Yes - diverticulities, cholesectomy Hx Cerebrovascular Accident: No Hx Seizures: No Review of Systems All Other Systems: negative except mentioned in HPI Physical Exam Vital Signs Date Time Temp Pulse Resp B/P (MAP) Pulse Ox O2 Delivery O2 Flow Rate FiO2 09/28/17 09:17 97.9 79 20 147/97 94 Room Air 97.9 Sp02 EP Interpretation: reviewed, normal General Appearance: no apparent distress, alert, GCS 15, non-toxic Head: normocephalic, atraumatic Eyes: bilateral eye normal inspection, bilateral eye PERRL ENT: hearing grossly normal, normal pharynx, no angioedema, normal voice Neck: full range of motion, no bony tend, supple/symm/no masses Respiratory: lungs clear, normal breath sounds, speaking full sentences, other - L rib tenderness Cardiovascular #1: regular rate, rhythm, no edema Cardiovascular #2: 2+ carotid (R), 2+ carotid (L), 2+ radial (R), 2+ radial (L) , 2+ dorsalis pedis (R), 2+ dorsalis pedis (L) Gastrointestinal: normal bowel sounds, non tender, soft, non-distended, no guarding, no rebound Rectal: deferred Genitourinary: normal inspection, no CVA tenderness Musculoskeletal: back normal, gait/station normal, normal range of motion, non- tender Neurologic: alert, oriented x3, responsive, motor strength/tone normal, sensory intact, speech normal Psychiatric: judgement/insight normal, memory normal, mood/affect normal, no suicidal/homicidal ideation Reflexes: 3+ bicep (R), 3+ bicep (L), 3+ tricep (R), 3+ tricep (L), 3+ knee (R) , 3+ knee (L) Skin: normal color, no rash, warm/dry, well hydrated Lymphatic: no adenopathy Medical Decision Making Diagnostic Impression: Primary Impression: Rib contusion Qualified Codes: S20.212A - Contusion of left front wall of thorax, initial encounter Additional Impression: Bronchitis ER Course Hospital Course 57-year-old male presents to ED complaining of L rib pain, cough s/p fall from ladder Differential diagnoses include: URI, bronchitis, rib fx, PTX Clinical course Patient placed on stretcher. After initial history and physical I ordered pain meds, CXR and rib series, and nebulizer treatment. CXR shows no acute infiltrate, no PTX Rib series shows no rib fx Upon reassessment patient states cough and symptoms have improved. Diagnosis - bronchitis, rib contusion Stable and discharged home with prescriptions for Rx [place], albuterol, prednisone, promethazine. Instructed to followup with PMD. Return to ED if symptoms recur or worsen Chest X-Ray Diagnostic Results Chest X-Ray Diagnostic Results : Chest X-Ray Ordered: Yes # of Views/Limited/Complete: 1 View Indication: Shortness of Breath EP Interpretation: Yes Interpretation: no consolidation, no effusion, no pneumothorax, no acute cardiopulmonary disease Impression: No acute disease Electronically Signed by: Electronically signed by Cristi Russ MD Other X-Ray Diagnostic Results Other X-Ray Diagnostic Results : X-Ray ordered: L rib series # of Views/Limited Vs Complete: 3 View Indication: Pain EP Interpretation: Yes Interpretation: no dislocation, no soft tissue swelling, no fractures Impression: No acute disease Electronically Signed by: Electronically signed by Cristi Russ MD Last Vital Signs Date Time Temp Pulse Resp B/P (MAP) Pulse Ox O2 Delivery O2 Flow Rate FiO2 09/28/17 10:05 76 18 98 Room Air 09/28/17 09:36 97.9 09/28/17 09:27 147/97 Status: improved Disposition: HOME, SELF-CARE Condition: Stable Scripts D-Methorphan Hb/Prometh Hcl* (PROMETHAZINE-DM SYRUP*) 118 Ml Syrup 5 ML ORAL Q4H PRN for For Cough, #118 ML 0 Refills Prov: Cristi Russ MD 09/28/17 Prednisone* (PREDNISONE*) 20 Mg Tablet 40 MG ORAL DAILY, #10 TAB Prov: Cristi Russ MD 09/28/17 Albuterol Sulfate* (ALBUTEROL SULFATE MDI*) 8.5 Gm Hfa.aer.ad 2 PUFF INH Q4H, #1 INH 0 Refills Prov: Cristi Russ MD 09/28/17 Hydrocodone Bit/Acetaminophen 5-325* (NORCO 5-325*) 1 Each Tablet 1 TAB ORAL Q6H PRN for For Pain, #10 TAB 0 Refills Prov: Cristi Russ MD 09/28/17 Ibuprofen* (MOTRIN*) 600 Mg Tablet 600 MG ORAL Q8H PRN for For Pain, #30 TAB 0 Refills Prov: Cristi Russ MD 09/28/17 Cristi Russ MD Sep 28, 2017 10:17
[2017-09-28] MEDS ORDERED: PREDNISONE20 MG ORAL (10:25)
[2017-09-28] MEDS ORDERED: NORCO 5-325 TA1 EACH ORAL (10:25)
[2017-09-28] MEDS ORDERED: ALBUTEROL SULF8.5 GM INH (10:25)
[2017-09-28] MEDS ORDERED: PROMETHAZINE-D118 ML ORAL (10:25)
[2017-09-28] MEDS ORDERED: IBUPROFEN600 MG ORAL (10:25)
[2017-09-28] MEDS ORDERED: Bacitracin Oint UD TOPIC ONE (10:30)
--- NOTE | 2017-09-28 10:44 | Diagnostic Imaging Report ---
Indication: Trauma and rib pain.. Comparison: None Findings: Indication: Trauma. Comparison: None Findings: 4 views of the left chest wall was obtained for evaluation of the ribs. There is no acute fracture identified. There is no soft tissue swelling demonstrated. The lung is essentially clear. There is no pneumothorax. The costophrenic angle is sharp. Other osseous structures visualized are unremarkable. Impression: Negative left unilateral rib series views of the left chest wall was obtained for evaluation of the ribs.
--- NOTE | 2017-09-28 10:46 | Diagnostic Imaging Report ---
Indication: Chest pain Comparison: 08/28/2017 A single view chest radiograph was obtained. Findings: Cardiomediastinal appearance is within normal limits for age. Pulmonary vascularity is appropriate. The diaphragmatic contour is smooth and costophrenic angles are sharp. No pleural effusions are identified. The bones are unremarkable. Impression: No acute findings
[2017-09-28 10:50] VITALS: BP 147/97
== END 2017-09-28 10:50 | disposition home or self-care (01) ==
LOC: EMR 10:35
DX: S20.212A Contusion of left front wall of thorax, initial encounter (principal); W11.XXXA Fall on and from ladder, initial encounter; Y92.009 Unspecified place in unspecified non-institutional (private) residence as the place of occurrence of the external cause; J40 Bronchitis, not specified as acute or chronic; Z90.49 Acquired absence of other specified parts of digestive tract
CPT/HCPCS: 71045; 94640; 94664; 99284

== ENCOUNTER 2017-11-25 13:19 | Emergency (ER) | payer MEDICAID ==
[~2017-11-25] VITALS: Ht 177.8 cm; Wt 93.0 kg
[~2017-11-25 13:19] MED LIST changes: +PREDNISONE20 MG ORAL; +PROMETHAZINE-D118 ML ORAL
[2017-11-25] MEDS ORDERED: Albuterol/Ipratropium 3ml neb HHN ONE (14:00)
[2017-11-25] MEDS ORDERED: Dicyclomine HCl 10mg/5ml oral soln ORAL ONE (14:15)
[2017-11-25] MEDS ORDERED: Lidocaine 2% Visc 15ml soln ORAL ONE (14:15)
[2017-11-25 14:31] VITALS: BP 151/104
[2017-11-25 14:34] LABS: APPEARANCE,URINE CLEAR; BILIRUBIN, URINE NEGATIVE (NEGATIVE); COLOR,URINE PALE YELLOW; GLUCOSE, URINE (UA) NEGATIVE (NEGATIVE); KETONES,URINE NEGATIVE (NEGATIVE); LEUKOCYTE ESTERASE ,URINE NEGATIVE (NEGATIVE); NITRITE,URINE NEGATIVE (NEGATIVE); PH,URINE 6 (4.5-8.0); PROTEIN,URINE NEGATIVE (NEGATIVE); UROBILINOGEN,URINE NORMAL MG/DL (0.0-1.0)
[2017-11-25 14:38] LABS: BASOPHILS % (AUTO) 1.3 % (0.0-2.0); EOSINOPHILS % (AUTO) 2.3 % (0.0-3.0); HEMATOCRIT 49.1 % (42.0-52.0); LYMPHOCYTES % (AUTO) 30.9 % (20.0-45.0); MEAN CORPUSCULAR VOLUME 85 FL (80-99); MONOCYTES % (AUTO) 7.2 % (1.0-10.0); NEUTROPHILS % (AUTO) 58.4 % (45.0-75.0); PLATELET COUNT 252 K/UL (150-450); RED BLOOD COUNT 5.78 M/UL (4.70-6.10); RED CELL DISTRIBUTION WIDTH 11.1 % (11.6-14.8); WHITE BLOOD COUNT 12.4 K/UL (4.8-10.8)
[2017-11-25 14:41] LABS: INR 1.1 (0.9-1.1)
[2017-11-25] MEDS ORDERED: ALBUTEROL SULF8.5 GM INH (14:42)
[2017-11-25] MEDS ORDERED: METRONIDAZOLE500 MG ORAL (14:42)
[2017-11-25 14:51] LABS: ANION GAP 12 mmol/L (5-15); BLOOD UREA NITROGEN 16 mg/dL (7-18); CALCIUM 9.2 MG/DL (8.5-10.1); CARBON DIOXIDE 25 MMOL/L (21-32); CHLORIDE 102 MMOL/L (98-107); CREATININE 1.5 MG/DL (0.55-1.30); POTASSIUM 3.9 MMOL/L (3.5-5.1); SODIUM 139 MMOL/L (136-145)
[2017-11-25 14:55] LABS: ALANINE AMINOTRANSFERASE 33 U/L (12-78); ALBUMIN 4.5 G/DL (3.4-5.0); ALBUMIN/GLOBULIN RATIO 1.3 (1.0-2.7); ALKALINE PHOSPHATASE 128 U/L (46-116); ASPARTATE AMINO TRANSFERASE 28 U/L (15-37)
[2017-11-25] MEDS ORDERED: cefTRIAXone 1 GM in NS 55 ML IVPB ONE (15:00)
--- NOTE | 2017-11-25 15:26 | Emergency Room Report ---
History of Present Illness General Chief Complaint: Abdominal Pain Source: Patient Present Illness HPI Patient is a 57-year-old male who presented after increased abdominal pain. Patient reports having increased left-sided pain. He states previous episodes of diverticulitis in the past and this feels similar to that. Patient had previous he is CT imaging which showed a similar symptoms. He denied any fever. He reports having a moderate headache. He denies any severe pain or diarrhea. Previously been taking pain medications chronically for back pain. He reports having some increased pain with movement. Allergies: Coded Allergies: No Known Allergies (Unverified , 04/21/17) Patient History Past Medical History: see triage record Reviewed Nursing Documentation: PMH: Agreed; PSxH: Agreed Nursing Documentation-PMH Past Medical History: No History, Except For Hx Cardiac Problems: No Hx Hypertension: No Hx Pacemaker: No Hx Asthma: No Hx COPD: No Hx Diabetes: No Hx Cancer: No Hx Gastrointestinal Problems: Yes - diverticulities, cholesectomy Hx Cerebrovascular Accident: No Hx Seizures: No Review of Systems All Other Systems: negative except mentioned in HPI Physical Exam Vital Signs Date Time Temp Pulse Resp B/P (MAP) Pulse Ox O2 Delivery O2 Flow Rate FiO2 11/25/17 13:29 98.3 83 20 147/104 96 Room Air 98.2 Sp02 EP Interpretation: reviewed, normal General Appearance: normal inspection, well appearing, no apparent distress, alert, GCS 15 Head: atraumatic ENT: normal ENT inspection, hearing grossly normal, normal voice Neck: normal inspection, full range of motion, supple, no bony tend Respiratory: normal inspection, lungs clear, normal breath sounds, no respiratory distress, no retraction, no wheezing Cardiovascular #1: regular rate, rhythm, no edema Gastrointestinal: normal inspection, normal bowel sounds, non tender, soft, no guarding, no hernia Genitourinary: no CVA tenderness Musculoskeletal: normal inspection, back normal, normal range of motion Neurologic: normal inspection, alert, oriented x3, responsive, 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 Differential diagnoses included ischemic bowel, appendicitis, perforated viscus, abdominal aortic aneurysm, inferior myocardial infarction, viral gastroenteritis Because of complexity of patient's case laboratory testing and imaging studies were ordered. The patient was noted to not have evidence of a peritonitis. The patient had recent CT imaging performed and this was not repeated at this time. Patient noted to have a mildly elevated white count consistent with diverticulitis. Patient was started on antibiotics. Patient is advised to follow-up with his private care physician for reexamination in the next few days.The patient is advised to follow up with primary care doctor 2 days. Patient is advised to return if any worsening condition or if any changes in status that are concerning. This report is dictated with [employer] engineering inspector software which may occasionally lead to discrepancies related to use of this software. Labs Test 11/25/17 14:00 White Blood Count 12.4 K/UL (4.8-10.8) Red Blood Count 5.78 M/UL (4.70-6.10) Hemoglobin 17.0 G/DL (14.2-18.0) Hematocrit 49.1 % (42.0-52.0) Mean Corpuscular Volume 85 FL (80-99) Mean Corpuscular Hemoglobin 29.5 PG (27.0-31.0) Mean Corpuscular Hemoglobin Concent 34.7 G/DL (32.0-36.0) Red Cell Distribution Width 11.1 % (11.6-14.8) Platelet Count 252 K/UL (150-450) Mean Platelet Volume 7.7 FL (6.5-10.1) Neutrophils (%) (Auto) 58.4 % (45.0-75.0) Lymphocytes (%) (Auto) 30.9 % (20.0-45.0) Monocytes (%) (Auto) 7.2 % (1.0-10.0) Eosinophils (%) (Auto) 2.3 % (0.0-3.0) Basophils (%) (Auto) 1.3 % (0.0-2.0) Prothrombin Time 11.9 SEC (9.30-11.50) Prothromb Time International Ratio 1.1 (0.9-1.1) Activated Partial Thromboplast Time 29 SEC (23-33) Urine Color Pale yellow Urine Appearance Clear Urine pH 6 (4.5-8.0) Urine Specific [place] 1.015 (1.005-1.035) Urine Protein Negative (NEGATIVE) Urine Glucose (UA) Negative (NEGATIVE) Urine Ketones Negative (NEGATIVE) Urine Blood 1+ (NEGATIVE) Urine Nitrite Negative (NEGATIVE) Urine Bilirubin Negative (NEGATIVE) Urine Urobilinogen Normal MG/DL (0.0-1.0) Urine Leukocyte Esterase Negative (NEGATIVE) Urine RBC 0-2 /HPF (0 - 0) Urine WBC 0 /HPF (0 - 0) Urine Squamous Epithelial Cells Occasional /LPF Urine Bacteria Occasional /HPF (NONE) Sodium Level 139 MMOL/L (136-145) Potassium Level 3.9 MMOL/L (3.5-5.1) Chloride Level 102 MMOL/L (98-107) Carbon Dioxide Level 25 MMOL/L (21-32) Anion Gap 12 mmol/L (5-15) Blood Urea Nitrogen 16 mg/dL (7-18) Creatinine 1.5 MG/DL (0.55-1.30) Estimat Glomerular Filtration Rate 48.2 mL/min (>60) Glucose Level 100 MG/DL (74-106) Calcium Level 9.2 MG/DL (8.5-10.1) Total Bilirubin 1.0 MG/DL (0.2-1.0) Aspartate Amino Transf (AST/SGOT) 28 U/L (15-37) Alanine Aminotransferase (ALT/SGPT) 33 U/L (12-78) Alkaline Phosphatase 128 U/L (46-116) Troponin I 0.017 ng/mL (0.000-0.056) Total Protein 7.9 G/DL (6.4-8.2) Albumin 4.5 G/DL (3.4-5.0) Globulin 3.4 g/dL Albumin/Globulin Ratio 1.3 (1.0-2.7) Lipase 353 U/L (73-393) EKG Diagnostic Results Rate: normal - 83 Rhythm: NSR ST Segments: no acute changes Last Vital Signs Date Time Temp Pulse Resp B/P (MAP) Pulse Ox O2 Delivery O2 Flow Rate FiO2 11/25/17 14:42 87 20 100 Room Air 11/25/17 14:31 151/104 11/25/17 13:29 98.3 98.2 Status: improved Disposition: HOME, SELF-CARE Condition: Stable Scripts Albuterol Sulfate* (ALBUTEROL SULFATE MDI*) 8.5 Gm Hfa.aer.ad 2 PUFF INH Q6H, #1 INH 0 Refills Prov: Ethan Obrien MD 11/25/17 Metronidazole* (FLAGYL*) 500 Mg Tablet 500 MG ORAL BID, #14 TAB Prov: Ethan Obrien MD 11/25/17 Referrals: IRISREFERRING (PCP) Patient Instructions: Abdominal Pain, Adult Ethan Obrien MD Nov 25, 2017 15:26
[2017-11-25 15:31] VITALS: BP 130/97
[2017-11-25 15:42] VITALS: BP 130/97
--- NOTE | 2017-11-27 08:18 | Diagnostic Imaging Report ---
Indication: Shortness of breath Technique: One view of the chest Comparison: 09/28/2017 Findings: Lungs and pleural spaces are clear. Heart size is normal . No significant interim change Impression: Negative This agrees with the preliminary interpretation provided overnight by [facility] teleradiology service.
--- NOTE | 2017-11-27 17:31 | Cardiology Report ---
APPROVED REPORT EKG Measurement Heart [id number] Normal sinus rhythm with sinus arrhythmia Low voltage QRS Borderline ECG
== END 2017-11-25 15:42 | disposition home or self-care (01) ==
LOC: EMR 14:00
DX: K57.92 Diverticulitis of intestine, part unspecified, without perforation or abscess without bleeding (principal)
CPT/HCPCS: 36415; 71045; 80053; 81003; 83690; 84484; 85025; 85610; 85730; 93005; 94640; 94664; 96361; 96365; 99285; J0696; J2405; J7620

== ENCOUNTER 2018-11-22 09:11 | Emergency (ER) | payer MEDICAID ==
[~2018-11-22] VITALS: Ht 177.8 cm; Wt 102.5 kg
[2018-11-22 09:30] VITALS: BP 153/110
--- NOTE | 2018-11-22 09:33 | NUR ---
ED Nurse Note: pt walked in to ER from home due to left abdominal pain 01/02. pt aao x4 and ambulatory. skin clean and intact. calm and cooperative but moaning for pain. pt is in gown and on manager coding. no acute distress noted at this time.
--- NOTE | 2018-11-22 09:34 | NUR ---
ED Nurse Note: ERMD at bedside.
[2018-11-22 09:42] LABS: BASOPHILS % (AUTO) 1.6 % (0.0-2.0); EOSINOPHILS % (AUTO) 2.7 % (0.0-3.0); HEMATOCRIT 54.2 % (42.0-52.0); MEAN CORPUSCULAR VOLUME 87 FL (80-99); MONOCYTES % (AUTO) 8.4 % (1.0-10.0); NEUTROPHILS % (AUTO) 52.2 % (45.0-75.0); PLATELET COUNT 248 K/UL (150-450); RED BLOOD COUNT 6.25 M/UL (4.70-6.10); RED CELL DISTRIBUTION WIDTH 11.7 % (11.6-14.8); WHITE BLOOD COUNT 9.3 K/UL (4.8-10.8)
[2018-11-22 09:43] LABS: HEMOGLOBIN 18.3 G/DL (14.2-18.0)
[2018-11-22 09:45] LABS: APPEARANCE,URINE CLEAR; BILIRUBIN, URINE NEGATIVE (NEGATIVE); GLUCOSE, URINE (UA) NEGATIVE (NEGATIVE); KETONES,URINE 2+ (NEGATIVE); LEUKOCYTE ESTERASE ,URINE NEGATIVE (NEGATIVE); NITRITE,URINE NEGATIVE (NEGATIVE); PH,URINE 6 (4.5-8.0); PROTEIN,URINE 1+ (NEGATIVE); UROBILINOGEN,URINE NORMAL MG/DL (0.0-1.0)
[2018-11-22] MEDS ORDERED: Ketorolac 30mg Inj IV ONE (09:45)
[2018-11-22] MEDS ORDERED: Morphine Sulfate 4mg/ml Inj (IV USE ONLY) IVP ONE (09:45)
[2018-11-22] MEDS ORDERED: Isovue-300 100ml vial INJ PRN (09:45)
[2018-11-22 09:50] LABS: COLOR,URINE YELLOW
--- NOTE | 2018-11-22 09:54 | NUR ---
ED Nurse Note: pt refused morphine. ERMD made aware. pt stated "Toradol will be enough."
[2018-11-22 09:55] LABS: ANION GAP 11 mmol/L (5-15); BLOOD UREA NITROGEN 18 mg/dL (7-18); CALCIUM 9.4 MG/DL (8.5-10.1); CARBON DIOXIDE 26 MMOL/L (21-32); CHLORIDE 102 MMOL/L (98-107); CREATININE 1.4 MG/DL (0.55-1.30); POTASSIUM 3.8 MMOL/L (3.5-5.1); SODIUM 139 MMOL/L (136-145)
--- NOTE | 2018-11-22 10:02 | NUR ---
ED Nurse Note: pt signed on CT with contrast consent with fully understanding.
--- NOTE | 2018-11-22 10:10 | NUR ---
ED Nurse Note: pt went down to CT in stable condition.
[2018-11-22 10:17] LABS: ALANINE AMINOTRANSFERASE 72 U/L (12-78); ALBUMIN 4.8 G/DL (3.4-5.0); ALBUMIN/GLOBULIN RATIO 1.3 (1.0-2.7); ALKALINE PHOSPHATASE 114 U/L (46-116); ASPARTATE AMINO TRANSFERASE 45 U/L (15-37); BILIRUBIN,TOTAL 1.5 MG/DL (0.2-1.0)
[2018-11-22 10:18] LABS: BILIRUBIN,DIRECT 0.2 MG/DL (0.0-0.3)
--- NOTE | 2018-11-22 10:27 | NUR ---
ED Nurse Note: pt came back from CT scan in stable condition.
--- NOTE | 2018-11-22 11:10 | NUR ---
ED Nurse Note: pt ambulated to bathroom with steady gait.
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
--- NOTE | 2018-11-22 11:20 | NUR ---
ED Nurse Note: ERMD at bedside.
[2018-11-22] MEDS ORDERED: FLEET ENEMA133 ML RECTAL (11:34)
[2018-11-22] MEDS ORDERED: COLACE100 MG ORAL (11:34)
[2018-11-22] MEDS ORDERED: CITRATE OF MAG296 ML PO (11:34)
[2018-11-22] MEDS ORDERED: IBUPROFEN600 MG ORAL (11:34)
[2018-11-22 11:40] VITALS: BP 147/92
--- NOTE | 2018-11-22 11:41 | NUR ---
ED Nurse Note: Pt cleared by health care Provider for discharge. DC instructions/prescription was given and explained to pt and verbalized understanding of teachings. All medical deviecs such as ID band removed. Pt is AAO x4, ambulatory and left with all personal belongings.
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
== END 2018-11-22 11:45 | disposition home or self-care (01) ==
LOC: EMR 09:30
DX: K57.30 Diverticulosis of large intestine without perforation or abscess without bleeding (principal); K59.00 Constipation, unspecified; I10 Essential (primary) hypertension; K40.20 Bilateral inguinal hernia, without obstruction or gangrene, not specified as recurrent; K44.9 Diaphragmatic hernia without obstruction or gangrene; N28.1 Cyst of kidney, acquired; Z90.49 Acquired absence of other specified parts of digestive tract
CPT/HCPCS: 36415; 74177; 80053; 81003; 82248; 83690; 85025; 96361; 96374; 96375; 99284; J1885; J2405; Q9967

== ENCOUNTER 2018-12-04 08:28 | Emergency (ER) | payer MEDICAID ==
[~2018-12-04] VITALS: Ht 177.8 cm; Wt 99.8 kg
[~2018-12-04 08:28] MED LIST changes: +CITRATE OF MAG296 ML PO; +COLACE100 MG ORAL; +FLEET ENEMA133 ML RECTAL
[2018-12-04] MEDS ORDERED: OMEPRAZOLE20 M3 ORAL (08:33)
--- NOTE | 2018-12-04 08:40 | NUR ---
ED Nurse Note: Patient in room 1 bed 2. Complning of swelling to the left knee. First noticed two nights ago. Not painful. Patient states it itches slightly. No reduced range of motion. 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 Able to walk without pain. Vitals rechecked. Elevatyed BP discussed with patient. Will recheck pre discharge patient aware.
[2018-12-04 08:42] VITALS: BP 152/101
--- NOTE | 2018-12-04 09:05 | Emergency Room Report ---
History of Present Illness General Chief Complaint: Skin Rash/Abscess Source: Patient Present Illness HPI Disclaimer: Please note that this report is being documented using DRAGON technology. This can lead to erroneous entry secondary to incorrect interpretation by the dictating instrument. HPI: 58-year-old male with history of hypertension presents for evaluation of left knee swelling. He noticed a bump over his left knee just below the patella several days ago and has been increasing in size. Nonpainful, has full range of motion, able to ambulate without difficulty. Denies any recent trauma , does not inject any medications. No recent abrasions or lacerations. No prior history of effusions, bursitis. He is afebrile, denies recent illness and any other medical complaints at this time PMH: Hypertension, diverticulitis PSH: Denies Allergies: None Social Hx: Denies tobacco or alcohol abuse Allergies: Coded Allergies: No Known Allergies (Unverified , 04/21/17) Nursing Documentation-PMH Past Medical History: No History, Except For Hx Hypertension: No Hx Pacemaker: No Hx Asthma: No Hx COPD: No Hx Diabetes: No Hx Cancer: No Hx Gastrointestinal Problems: Yes - diverticulitis Hx Cerebrovascular Accident: No Hx Seizures: No Review of Systems All Other Systems: negative except mentioned in HPI Physical Exam Vital Signs Date Time Temp Pulse Resp B/P (MAP) Pulse Ox O2 Delivery O2 Flow Rate FiO2 12/04/18 08:31 98.6 86 18 150/90 (110) 95 Room Air General: Awake and alert, no acute distress HEENT: NC/AT. EOMI. Resp: Normal work of breathing. Skin: Intact. No abrasions, laceration or rash over the exposed skin MSK: Normal tone and bulk. Moving all extremities. There is a 3 x 3 cm circular raised mass that is soft, fluctuant without overlying erythema, surrounding edema or signs of infection. It is located over the tibial tuberosity. Left knee has full range of motion, nontender, no instability on varus and valgus testing. Extremities are well perfused. 2+ PT pulses bilaterally. Right lower extremity is atraumatic, no deformity, full range of motion. Neuro: Awake and alert. Mentating appropriately. Procedures Additional Procedure Procedure Narrative Aspiration and infrapatellar bursa Area sterilized with chlorhexidine prep. Approximately 2 cc lidocaine used for local anesthesia. Aspiration of approximately 5 cc straw-colored, translucent fluid on first attempt. No significant bleeding. No blood loss. Patient tolerated the procedure well. He was neurovascularly intact at the start and end of the procedure. No complications. Medical Decision Making Diagnostic Impression: Primary Impression: Infrapatellar bursitis ER Course 58-year-old male presents for evaluation of painless growing mass over the left knee several days. No evidence of infection, vital signs are stable. Differential includes but is not limited to gout, bursitis, septic arthritis, effusion, tendon tear. Will obtain blood work including uric acid and aspirate the mass. Will send for analysis. Likely, this is a infrapatellar bursitis without overlying evidence of infection. Laboratory Tests Test 12/04/18 09:15 12/04/18 09:38 Body Fluid Source Knee aspirate Body Fluid Volume 1 mL Body Fluid Appearance Clear (Clear) Body Fluid RBC 2790 /CUMM Body Fluid Total Nucleated Cells 159 /CUMM Body Fluid Polynuclear WBCs (%) 0 % Body Fluid Mononuclear WBCs (%) 99 % Body Fluid Mesothelial Cells (%) 1 % Synovial Fluid Crystals Pending White Blood Count 8.8 K/UL (4.8-10.8) Red Blood Count 5.74 M/UL (4.70-6.10) Hemoglobin 16.9 G/DL (14.2-18.0) Hematocrit 49.7 % (42.0-52.0) Mean Corpuscular Volume 87 FL (80-99) Mean Corpuscular Hemoglobin 29.5 PG (27.0-31.0) Mean Corpuscular Hemoglobin Concent 34.1 G/DL (32.0-36.0) Red Cell Distribution Width 11.4 % (11.6-14.8) L Platelet Count 227 K/UL (150-450) Mean Platelet Volume 7.8 FL (6.5-10.1) Neutrophils (%) (Auto) 55.0 % (45.0-75.0) Lymphocytes (%) (Auto) 31.4 % (20.0-45.0) Monocytes (%) (Auto) 8.8 % (1.0-10.0) Eosinophils (%) (Auto) 3.2 % (0.0-3.0) H Basophils (%) (Auto) 1.7 % (0.0-2.0) Sodium Level 143 MMOL/L (136-145) Potassium Level 4.5 MMOL/L (3.5-5.1) Chloride Level 106 MMOL/L (98-107) Carbon Dioxide Level 30 MMOL/L (21-32) Anion Gap 7 mmol/L (5-15) Blood Urea Nitrogen 13 mg/dL (7-18) Creatinine 1.5 MG/DL (0.55-1.30) H Estimate Glomerular Filtration Rate 48.1 mL/min (>60) Glucose Level 106 MG/DL (74-106) Uric Acid 7.0 MG/DL (2.6-7.2) Calcium Level 8.9 MG/DL (8.5-10.1) Reevaluation Time: 10:30 Last Vital Signs Date Time Temp Pulse Resp B/P (MAP) Pulse Ox O2 Delivery O2 Flow Rate FiO2 12/04/18 08:42 98.0 84 16 152/101 96 Room Air Status: improved Reevaluation Impression Fluid analysis shows fewer than 50,000 nucleated cells and is clear yellow without obvious evidence of infection. Little concern for septic arthritis at this time. Crystal analysis is pending. Patient will be discharged on NSAIDs though uric acid levels in the bladder low. Labs are otherwise unremarkable aside from a slightly elevated creatinine. The patient is encouraged to drink more water and follow-up with his PMD for reevaluation. Discussed reasons to return to the emergency department. He understands and agrees with treatment plan. Disposition: HOME, SELF-CARE Condition: Improved Scripts Ibuprofen* (MOTRIN*) 600 Mg Tablet 600 MG ORAL Q8H PRN for For Pain, #30 TAB 0 Refills Prov: Yasmany Rosado MD 12/04/18 Yasmany Rosado MD Dec 04, 2018 09:05
[2018-12-04 09:09] VITALS: BP 137/93
[2018-12-04] MEDS ORDERED: Lidocaine 1% 10mg/ml/Epi 0.005mg/ml 10ml vial INJ ONE (09:15)
--- NOTE | 2018-12-04 09:41 | NUR ---
ED Nurse Note:blood and body fluids sent to labs
[2018-12-04 09:53] LABS: BASOPHILS % (AUTO) 1.7 % (0.0-2.0); EOSINOPHILS % (AUTO) 3.2 % (0.0-3.0); HEMATOCRIT 49.7 % (42.0-52.0); HEMOGLOBIN 16.9 G/DL (14.2-18.0); LYMPHOCYTES % (AUTO) 31.4 % (20.0-45.0); MEAN CORPUSCULAR VOLUME 87 FL (80-99); MONOCYTES % (AUTO) 8.8 % (1.0-10.0); PLATELET COUNT 227 K/UL (150-450); RED BLOOD COUNT 5.74 M/UL (4.70-6.10); RED CELL DISTRIBUTION WIDTH 11.4 % (11.6-14.8); WHITE BLOOD COUNT 8.8 K/UL (4.8-10.8)
[2018-12-04 09:55] LABS: ANION GAP 7 mmol/L (5-15); BLOOD UREA NITROGEN 13 mg/dL (7-18); CALCIUM 8.9 MG/DL (8.5-10.1); CARBON DIOXIDE 30 MMOL/L (21-32); CHLORIDE 106 MMOL/L (98-107); CREATININE 1.5 MG/DL (0.55-1.30); POTASSIUM 4.5 MMOL/L (3.5-5.1); SODIUM 143 MMOL/L (136-145)
[2018-12-04] MEDS ORDERED: IBUPROFEN600 MG ORAL (10:23)
[2018-12-04 10:30] VITALS: BP 137/93
--- NOTE | 2018-12-04 10:30 | NUR ---
ER DISCHARGE NOTE:wilson wrap placed on left knee Patient is cleared to be discharged per ERMD, pt is aox4, on room air, with stable vital signs. pt was given dc and prescription instructions, pt was able to verbalize understanding, pt is able to ambulate with steady gait. pt took all belongings.
== END 2018-12-04 10:30 | disposition home or self-care (01) ==
LOC: EMR 09:40
DX: M71.562 Other bursitis, not elsewhere classified, left knee (principal); I10 Essential (primary) hypertension; K57.90 Diverticulosis of intestine, part unspecified, without perforation or abscess without bleeding
CPT/HCPCS: 20610; 36415; 80048; 84550; 85025; 89051; 89060; Z7502; 99284

== ENCOUNTER 2018-12-28 04:37 | Emergency (ER) | payer MEDICAID ==
[~2018-12-28] VITALS: Ht 177.8 cm; Wt 95.3 kg
[~2018-12-28 04:37] MED LIST changes: +OMEPRAZOLE20 M3 ORAL
[2018-12-28] MEDS ORDERED: HYDROCHLOROTHIA25 MG ORAL (04:46)
[2018-12-28 04:48] VITALS: BP 145/85
--- NOTE | 2018-12-28 04:48 | NUR ---
ED Nurse Note: pt walked in to ED C/O left sided pain from left sided headache x 2 week, left shoulder, to left abdomen to leg area. pt also stated he has been having tarry stool. VSS. pt is alert x4.
--- NOTE | 2018-12-28 04:59 | Emergency Room Report ---
History of Present Illness General Chief Complaint: Chest Pain Source: Patient (Yasmany Rosado MD) Present Illness HPI Disclaimer: Please note that this report is being documented using DRAGON technology. This can lead to erroneous entry secondary to incorrect interpretation by the dictating instrument. HPI: 58-year-old male with a history of hypertension and diverticulitis presents for evaluation of diaphoresis, lightheadedness, neck pain, headache and arm tingling. Patient states he has had an intermittent left-sided headache for the past 2 weeks as well as cramping over the left side of the neck. Cannot recall a specific injury. This morning, he awoke abruptly approximately 3:30 AM complaining of diaphoresis, upper chest and left shoulder discomfort and pain radiating down the left arm. This concerned him and caused him to present to the emergency department. He denies any shortness of breath and nausea. No recent fevers, chills or illness. Took a home blood pressure reading with systolic pressures in the 160s. He saw his PMD for these headaches a few weeks ago and started hydrochlorothiazide for his blood pressures. Currently denying chest pain and states his pain is more in the left shoulder. He also notes that over the past few days he has had some left- sided abdominal pain without nausea, vomiting or diarrhea. States it is a similar pain from his diverticulitis though not as severe. He also notes jet black stools over the past few days. He has been going to the bathroom more frequently. Denies dysuria or hematuria PMH: Diverticulitis, hypertension PSH: None Allergies: None Social Hx: Denies tobacco or alcohol use (Yasmany Rosado MD) Allergies: Coded Allergies: No Known Allergies (Unverified , 04/21/17) Nursing Documentation-PMH Past Medical History: No History, Except For Hx Hypertension: Yes Hx Pacemaker: No Hx Asthma: No Hx COPD: No Hx Diabetes: No Hx Cancer: No Hx Gastrointestinal Problems: Yes - diverticulitis Hx Cerebrovascular Accident: No Hx Seizures: No (Yasmany Rosado MD) Review of Systems All Other Systems: negative except mentioned in HPI (Yasmany Rosado MD) Physical Exam Vital Signs Date Time Temp Pulse Resp B/P (MAP) Pulse Ox O2 Delivery O2 Flow Rate FiO2 12/28/18 04:41 98.4 76 18 153/102 (119) 99 Room Air General: Awake and alert, no acute distress HEENT: NC/AT. EOMI. PERRLA. Extraocular movements are intact. Mucous membranes are moist. Chest Wall: No tenderness, no deformity Cardiovascular: RRR. S1 and S2 normal. No murmur appreciated Resp: Normal work of breathing. No cough, wheezing or crackles appreciated Abdomen: Abdomen is soft, nondistended. Tenderness palpation in the periumbilical somewhat right upper quadrant regions. No rebound. Negative Ortiz's. FOBT is positive, no evidence of hemorrhoids. Stool is non- melanotic. Skin: Intact. No abrasions, laceration or rash over the exposed skin MSK: Normal tone and bulk. Moving all extremities. No obvious deformity. There is tenderness palpation over the left side of the neck and over the left trapezius. No deformity and tenderness in the left shoulder joint or in the left upper extremity. Neuro: Awake and alert. Mentating appropriately. Sensation is intact over the upper and lower extremities bilaterally. Back/Spine: No midline tenderness in the cervical, thoracic or lumbosacral spine. Significant left-sided paraspinal tenderness extending over the left trapezius and supraspinatus (Yasmany Rosado MD) Medical Decision Making Diagnostic Impression: Primary Impression: Chest pain Additional Impressions: Headache Abdominal pain ER Course Is a 58-year-old male with a history of hypertension and diverticulitis presenting for multiple complaints including headache, left-sided neck pain and shoulder pain, diaphoresis and lightheadedness this morning as well as recent jet black stools and abdominal pain. Differential is broad and includes but is not limited to angina, ACS, dehydration, vertigo, muscle spasm, tension headache , cluster headache, diverticulosis, diverticulitis, cholecystitis, pancreatitis , upper GI bleed. (Yasmany Rosado MD) ER Course Please refer to the initial note for the history exam and presentation at this time CT of the abdomen pelvic area was pending This was resulted and is essentially negative Patient has remained hemodynamically stable On repeat evaluation abdomen is soft patient has a benign neurological exam He voices concern over his blood pressure this morning which was at 160 systolic His blood pressure here was at 147 upon my evaluation Patient is encouraged to follow closely with his primary physician and possible cardiology follow-up I also discussed with him regarding imaging of his abdomen and pelvic area with contrast patient did have a CT here on review About a month ago And I feel that continued CT imaging needs to be reviewed more significantly prior to imaging in the future patient is understanding of this And is disposition for close outpatient follow-up Labs Test 12/28/18 04:15 12/28/18 04:55 Lipase 184 U/L (73-393) White Blood Count 10.1 K/UL (4.8-10.8) Red Blood Count 5.82 M/UL (4.70-6.10) Hemoglobin 17.6 G/DL (14.2-18.0) Hematocrit 49.5 % (42.0-52.0) Mean Corpuscular Volume 85 FL (80-99) Mean Corpuscular Hemoglobin 30.3 PG (27.0-31.0) Mean Corpuscular Hemoglobin Concent 35.5 G/DL (32.0-36.0) Red Cell Distribution Width 11.1 % (11.6-14.8) Platelet Count 227 K/UL (150-450) Mean Platelet Volume 7.5 FL (6.5-10.1) Neutrophils (%) (Auto) 55.6 % (45.0-75.0) Lymphocytes (%) (Auto) 31.0 % (20.0-45.0) Monocytes (%) (Auto) 8.1 % (1.0-10.0) Eosinophils (%) (Auto) 3.8 % (0.0-3.0) Basophils (%) (Auto) 1.6 % (0.0-2.0) Sodium Level 137 MMOL/L (136-145) Potassium Level 3.4 MMOL/L (3.5-5.1) Chloride Level 98 MMOL/L (98-107) Carbon Dioxide Level 31 MMOL/L (21-32) Anion Gap 9 mmol/L (5-15) Blood Urea Nitrogen 15 mg/dL (7-18) Creatinine 1.4 MG/DL (0.55-1.30) Estimat Glomerular Filtration Rate 52.1 mL/min (>60) Glucose Level 111 MG/DL (74-106) Calcium Level 9.5 MG/DL (8.5-10.1) Total Bilirubin 0.9 MG/DL (0.2-1.0) Aspartate Amino Transf (AST/SGOT) 32 U/L (15-37) Alanine Aminotransferase (ALT/SGPT) 66 U/L (12-78) Alkaline Phosphatase 115 U/L (46-116) Total Creatine Kinase 124 U/L (26-308) Creatine Kinase MB 1.8 NG/ML (0.0-3.6) Creatine Kinase MB Relative Index 1.4 Troponin I 0.000 ng/mL (0.000-0.056) Total Protein 8.0 G/DL (6.4-8.2) Albumin 4.4 G/DL (3.4-5.0) Globulin 3.6 g/dL Albumin/Globulin Ratio 1.2 (1.0-2.7) (Bibiana Garvin DO) EKG Diagnostic Results EKG Time: 04:48 Rate: normal Rhythm: NSR ST Segments: no acute changes Other Impression Sinus rhythm, normal axis, normal intervals, no ST segment changes. (Yasmany Rosado MD) Rhythm Strip Diag. Results Rhythm Strip Time: 04:48 EP Interpretation: yes Rate: 70s Rhythm: NSR, no PVC's, no ectopy (Yasmany Rosado MD) EP Interpretation: yes Rate: 66 Rhythm: NSR, no PVC's, no ectopy (Bibiana Garvin DO) Chest X-Ray Diagnostic Results Chest X-Ray Diagnostic Results : Chest X-Ray Ordered: Yes # of Views/Limited/Complete: 1 View Indication: Chest Pain EP Interpretation: Yes Interpretation: no consolidation, no effusion, no pneumothorax, no acute cardiopulmonary disease Impression: No acute disease Electronically Signed by: Electronically signed by Dr. Yasmany Rosado (Yasmany Rosado MD) CT/MRI/US Diagnostic Results CT/MRI/US Diagnostic Results : Impression CT abdomen pelvisIMPRESSION: No acute pathology in the abdomen or pelvis is identified. (Bibiana Garvin DO) Last Vital Signs Date Time Temp Pulse Resp B/P (MAP) Pulse Ox O2 Delivery O2 Flow Rate FiO2 12/28/18 04:41 98.4 76 18 153/102 (119) 99 Room Air (Yasmany Rosado MD) Status: improved (Bibiana Garvin DO) Disposition: HOME, SELF-CARE Condition: Improved Scripts Methocarbamol* (ROBAXIN-750*) 750 Mg Tablet 750 MG PO TID, #21 TAB 0 Refills Prov: Bibiana Garvin DO 12/28/18 Referrals: [facility]ERR[facility] (PCP) Additional Instructions: Patient is provided with the discharge instructions notified to follow up with primary doctor in the next 2-3 days otherwise return to the er with any worsening symptoms. Please note that this report is being documented using DRAGON technology. This can lead to erroneous entry secondary to incorrect interpretation by the dictating instrument. Yasmany Rosado MD Dec 28, 2018 04:59 Bibiana Garvin DO Dec 28, 2018 09:12
[2018-12-28] MEDS ORDERED: Ketorolac 30mg Inj IM ONE (05:00)
[2018-12-28] MEDS ORDERED: Aspirin Baby 81mg ORAL ONE (05:00)
--- NOTE | 2018-12-28 05:00 | NUR ---
ED Nurse Note: blood sample sent down to lab
--- NOTE | 2018-12-28 05:04 | NUR ---
ED Nurse Note: x ray at bed side
[2018-12-28 05:05] LABS: BASOPHILS % (AUTO) 1.6 % (0.0-2.0); EOSINOPHILS % (AUTO) 3.8 % (0.0-3.0); HEMATOCRIT 49.5 % (42.0-52.0); HEMOGLOBIN 17.6 G/DL (14.2-18.0); MEAN CORPUSCULAR VOLUME 85 FL (80-99); MONOCYTES % (AUTO) 8.1 % (1.0-10.0); NEUTROPHILS % (AUTO) 55.6 % (45.0-75.0); PLATELET COUNT 227 K/UL (150-450); RED BLOOD COUNT 5.82 M/UL (4.70-6.10); RED CELL DISTRIBUTION WIDTH 11.1 % (11.6-14.8); WHITE BLOOD COUNT 10.1 K/UL (4.8-10.8)
[2018-12-28 05:18] LABS: ANION GAP 9 mmol/L (5-15); BLOOD UREA NITROGEN 15 mg/dL (7-18); CALCIUM 9.5 MG/DL (8.5-10.1); CARBON DIOXIDE 31 MMOL/L (21-32); CHLORIDE 98 MMOL/L (98-107); CREATININE 1.4 MG/DL (0.55-1.30); POTASSIUM 3.4 MMOL/L (3.5-5.1); SODIUM 137 MMOL/L (136-145)
[2018-12-28] MEDS ORDERED: Omnipaque-300 100ml vial INJ PRN (05:30)
[2018-12-28 05:32] LABS: ALANINE AMINOTRANSFERASE 66 U/L (12-78); ALBUMIN 4.4 G/DL (3.4-5.0); ALBUMIN/GLOBULIN RATIO 1.2 (1.0-2.7); ALKALINE PHOSPHATASE 115 U/L (46-116); ASPARTATE AMINO TRANSFERASE 32 U/L (15-37); BILIRUBIN,TOTAL 0.9 MG/DL (0.2-1.0); CKMB 1.8 NG/ML (0.0-3.6); CREATINE KINASE 124 U/L (26-308)
[2018-12-28 06:58] VITALS: BP 132/80
--- NOTE | 2018-12-28 06:58 | NUR ---
ED Nurse Note: pt in bed resting, awake. VSS. awaiting for CT
--- NOTE | 2018-12-28 07:04 | NUR ---
ED Nurse Note: went for CT
--- NOTE | 2018-12-28 07:11 | NUR ---
ED Nurse Note: report given to ELSA Ornelas
--- NOTE | 2018-12-28 07:45 | Diagnostic Imaging Report ---
EXAM: XR Chest, 1 View CLINICAL HISTORY: CP TECHNIQUE: Frontal view of the chest. COMPARISON: none FINDINGS: Lungs: The lungs show mild bibasilar atelectatic changes. Pleural space: Unremarkable. No pneumothorax. Heart: Unremarkable. No cardiomegaly. Mediastinum: Unremarkable. Bones joints: Unremarkable. IMPRESSION: The lungs show mild bibasilar atelectatic changes. Otherwise no acute process shown.
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
[2018-12-28] MEDS ORDERED: ROBAXIN-750750 MG PO (09:06)
[2018-12-28 09:12] VITALS: BP 125/77
--- NOTE | 2018-12-28 09:12 | NUR ---
ER DISCHARGE NOTE: Patient is cleared to be discharged per ERMD, pt is aox4, on room air, with stable vital signs. pt was given dc and prescription instructions, pt was able to verbalize understanding, pt id band and iv site removed without complications. pt is able to ambulate with steady gait. pt took all belongings.
--- NOTE | 2018-12-31 14:25 | Cardiology Report ---
APPROVED REPORT EKG Measurement Heart [id number] Normal sinus rhythm Nonspecific T wave abnormality Abnormal ECG
== END 2018-12-28 09:12 | disposition home or self-care (01) ==
LOC: EMR 04:55
DX: R07.9 Chest pain, unspecified (principal); R51 Headache; R10.9 Unspecified abdominal pain; I10 Essential (primary) hypertension; K57.90 Diverticulosis of intestine, part unspecified, without perforation or abscess without bleeding
CPT/HCPCS: 36415; 71045; 74177; 80053; 82550; 82553; 83690; 84484; 85025; 93005; 96360; 96372; J1885; Q9967; Z7502; 99284

== ENCOUNTER 2019-01-30 06:48 | Emergency (ER) | payer MEDICAID ==
[~2019-01-30] VITALS: Ht 177.8 cm; Wt 95.3 kg
[~2019-01-30 06:48] MED LIST changes: +HYDROCHLOROTHIA25 MG ORAL; +ROBAXIN-750750 MG PO
[2019-01-30] MEDS ORDERED: DiphenhydrAMINE 50mg/ml Inj IVP ONE (07:15)
[2019-01-30] MEDS ORDERED: Mylanta II UD 30ml ORAL ONE (07:15)
[2019-01-30] MEDS ORDERED: Metoclopramide 10mg/2ml Inj IVP ONE (07:15)
--- NOTE | 2019-01-30 07:15 | NUR ---
Patient arrived to ED by car from home. Patient states that he has been feeling dizzy for the last 3 days. He feels the dizziness after feeling lower left quadrant abdominal pain and only after eating. He states that he has not fallen and currently feels only slightly dizzy, but does feel nauseated. VSS stable, patient on the tank driver, bed in lowest position. Blood sent to lab.
[2019-01-30 07:20] VITALS: BP 137/103
--- NOTE | 2019-01-30 07:26 | Emergency Room Report ---
History of Present Illness General Chief Complaint: Dizziness Source: Patient Present Illness HPI Patient presents with a chief complaint of dizziness. This is been going on for 3 days. He noticed a black material from his right ear recently. Brings in a Q-tip. He has had recurrent problems with that ear. He is seen a specialist. He was treated with a "strong" antibiotic. He was told by the specialist not to use any eardrops. He describes to dizziness as a warm feeling originating his legs going through his belly and up to his head. Denies any loss of consciousness but feels weak when he stands. He has been having problems with constipation and few days ago took a laxative. He had diarrhea for the last couple of days. It has been normal color. He has a history of diverticulosis. He feels this is the reason for his constipation. He denies any vomiting. No fevers or chills. He feels epigastric burning also. This is nonradiating. Patient was evaluated early December for chest pain. He was also concerned about his blood pressure at that time. He says he was given a prescription of Robaxin for neck problems at that time. He states that the Robaxin has not helped him. He thought this was also for stress. The patient's been self injecting B12 into his thighs over the last few days. He states that those sites are not a problem with redness or swelling. The patient is unclear of other medications he is taking. No sore throat, chest pain, palpitations, dysuria, shortness of breath, joint pain, rashes, depression, visual changes, headache. 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 - girlfriend who is in [place] Reviewed Nursing Documentation: PMH: Agreed; PSxH: Agreed Nursing Documentation-PMH Hx Hypertension: Yes Hx Pacemaker: No Hx Asthma: No Hx COPD: No Hx Diabetes: No Hx Cancer: No Hx Gastrointestinal Problems: Yes - diverticulitis Hx Cerebrovascular Accident: No Hx Seizures: No Review of Systems All Other Systems: negative except mentioned in HPI Physical Exam Vital Signs Date Time Temp Pulse Resp B/P (MAP) Pulse Ox O2 Delivery O2 Flow Rate FiO2 11/7/19 06:50 98.1 80 16 146/90 (108) 97 Room Air Sp02 EP Interpretation: reviewed, normal General Appearance: well appearing, no apparent distress, GCS 15 Head: normocephalic Eyes: bilateral eye normal inspection, bilateral eye PERRL, bilateral eye EOMI ENT: normal pharynx, moist mucus membranes, other - R TM red Neck: full range of motion, supple Respiratory: lungs clear, normal breath sounds Cardiovascular #1: regular rate, rhythm Cardiovascular #2: 2+ radial (R) Gastrointestinal: normal inspection, normal bowel sounds, non tender, no mass, non-distended Musculoskeletal: back normal, gait/station normal, normal range of motion Neurologic: alert, oriented x3, cerebellar normal, normal gait, speech normal Psychiatric: anxious Skin: no rash Medical Decision Making Diagnostic Impression: Primary Impression: Abdominal pain Qualified Codes: R10.84 - Generalized abdominal pain Additional Impressions: Otitis media Qualified Codes: H66.004 - Acute suppurative otitis media without spontaneous rupture of ear drum, recurrent, right ear Anxiety Nausea Constipation Qualified Codes: K59.00 - Constipation, unspecified ER Course Patient presents with a chief complaint of dizziness however there are other somatic complaints. Is a nonfocal neurologic exam at this time. In addition there is no nystagmus. He is complaining about his right ear. Differential includes labyrinthitis, otitis media, otitis externa, anxiety, electrolyte imbalance, vertigo amongst others. He also has epigastric burning and feeling of dizziness comes from his stomach. He has been using laxatives. Differential also includes gastritis, peptic ulcer disease and pancreatitis. CT the head is not indicated. Patient will be evaluated with EKG chest x-ray and labs. He will receive IV hydration, Pepcid, Reglan and Benadryl with Mylanta. Normal sinus rhythm [address]-T wave changes. Chest x-ray unremarkable. Labs unremarkable. Patient improved with treatment. Pain is resolved in his stomach. Discussion about treatment of the ear. He still is reluctant to use eardrops. 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 Discussed anxiety and stress. Patient stable for outpatient observation and treatment. Laboratory Tests Test 01/30/19 07:20 01/30/19 07:45 White Blood Count 8.1 K/UL (4.8-10.8) Red Blood Count 5.73 M/UL (4.70-6.10) Hemoglobin 16.9 G/DL (14.2-18.0) Hematocrit 49.1 % (42.0-52.0) Mean Corpuscular Volume 86 FL (80-99) Mean Corpuscular Hemoglobin 29.5 PG (27.0-31.0) Mean Corpuscular Hemoglobin Concent 34.5 G/DL (32.0-36.0) Red Cell Distribution Width 11.5 % (11.6-14.8) L Platelet Count 193 K/UL (150-450) Mean Platelet Volume 7.6 FL (6.5-10.1) Neutrophils (%) (Auto) 59.9 % (45.0-75.0) Lymphocytes (%) (Auto) 31.0 % (20.0-45.0) Monocytes (%) (Auto) 6.3 % (1.0-10.0) Eosinophils (%) (Auto) 1.6 % (0.0-3.0) Basophils (%) (Auto) 1.2 % (0.0-2.0) Prothrombin Time 11.0 SEC (9.30-11.50) Prothrombin Time INR 1.0 (0.9-1.1) PTT 23 SEC (23-33) Sodium Level 139 MMOL/L (136-145) Potassium Level 4.0 MMOL/L (3.5-5.1) Chloride Level 103 MMOL/L (98-107) Carbon Dioxide Level 26 MMOL/L (21-32) Anion Gap 10 mmol/L (5-15) Blood Urea Nitrogen 18 mg/dL (7-18) Creatinine 1.2 MG/DL (0.55-1.30) Estimate Glomerular Filtration Rate > 60 mL/min (>60) Glucose Level 101 MG/DL (74-106) Calcium Level 9.0 MG/DL (8.5-10.1) Total Bilirubin 1.3 MG/DL (0.2-1.0) H Direct Bilirubin 0.2 MG/DL (0.0-0.3) Aspartate Amino Transferase (AST) 27 U/L (15-37) Alanine Aminotransferase (ALT) 49 U/L (12-78) Alkaline Phosphatase 111 U/L (46-116) Total Creatine Kinase 100 U/L (26-308) Troponin I 0.005 ng/mL (0.000-0.056) Pro-B-Type Natriuretic Peptide 38 pg/mL (0-125) Total Protein 7.7 G/DL (6.4-8.2) Albumin 4.3 G/DL (3.4-5.0) Globulin 3.4 g/dL Albumin/Globulin Ratio 1.3 (1.0-2.7) Lipase 179 U/L (73-393) Urine Color Pale yellow Urine Appearance Clear Urine pH 6.5 (4.5-8.0) Urine Specific [place] 1.010 (1.005-1.035) Urine Protein Negative (NEGATIVE) Urine Glucose (UA) Negative (NEGATIVE) Urine Ketones Negative (NEGATIVE) Urine Blood Negative (NEGATIVE) Urine Nitrite Negative (NEGATIVE) Urine Bilirubin Negative (NEGATIVE) Urine Urobilinogen Normal MG/DL (0.0-1.0) Urine Leukocyte Esterase Negative (NEGATIVE) Urine Opiates Screen Negative (NEGATIVE) Urine Barbiturates Screen Negative (NEGATIVE) Phencyclidine (PCP) Screen Negative (NEGATIVE) Urine Amphetamines Screen Negative (NEGATIVE) Urine Benzodiazepines Screen Negative (NEGATIVE) Urine Cocaine Screen Negative (NEGATIVE) Urine Marijuana (THC) Screen Negative (NEGATIVE) EKG Diagnostic Results Rate: normal Rhythm: NSR ST Segments: no acute changes Rhythm Strip Diag. Results EP Interpretation: yes Rhythm: NSR, no PVC's, no ectopy Chest X-Ray Diagnostic Results Chest X-Ray Diagnostic Results : Chest X-Ray Ordered: Yes # of Views/Limited/Complete: 1 View Indication: Other EP Interpretation: Yes Interpretation: no consolidation, no effusion, no pneumothorax Impression: No acute disease Electronically Signed by: Electronically signed by Julio Gutierrez MD Last Vital Signs Date Time Temp Pulse Resp B/P (MAP) Pulse Ox O2 Delivery O2 Flow Rate FiO2 01/30/19 10:56 98.3 70 13 132/95 98 Room Air Status: improved Disposition: HOME, SELF-CARE Condition: Improved Scripts Acetaminophen (Tylenol) 325 Mg Tablet 650 MG ORAL Q6H PRN for Prn Pain/Headache/Temp > 101, #20 TAB 0 Refills Prov: Julio Gutierrez MD 01/30/19 Mag Hydrox/Al Hydrox/Simeth (MAALOX MAXIMUM STRENGTH SUSP) 355 Ml Oral.susp 30 ML PO Q6HR PRN for stomach pain, #240 ML Prov: Julio Gutierrez MD 01/30/19 Neomycin/Polymyxin B Sulf/Hc* (CORTISPORIN EAR SOLUTION*) 10 Ml Solution 4 DROP RIGHT EAR QID, #10 ML 0 Refills Prov: Julio Gutierrez MD 01/30/19 Amoxicillin/Potassium Clav 500-125 Tablet* (AUGMENTIN 500-125 TABLET*) 1 Each Tablet 1 TAB ORAL THREE TIMES A DAY, #20 TAB Prov: Julio Gutierrez MD 01/30/19 Metoclopramide Hcl* (REGLAN*) 5 Mg Tablet 5 MG ORAL EVERY 8 HOURS PRN for Nausea & Vomiting, #10 TAB Prov: Julio Gutierrez MD 01/30/19 Julio Gutierrez MD Jan 30, 2019 07:26
[2019-01-30 07:30] LABS: BASOPHILS % (AUTO) 1.2 % (0.0-2.0); EOSINOPHILS % (AUTO) 1.6 % (0.0-3.0); HEMATOCRIT 49.1 % (42.0-52.0); HEMOGLOBIN 16.9 G/DL (14.2-18.0); MEAN CORPUSCULAR VOLUME 86 FL (80-99); MONOCYTES % (AUTO) 6.3 % (1.0-10.0); NEUTROPHILS % (AUTO) 59.9 % (45.0-75.0); PLATELET COUNT 193 K/UL (150-450); RED BLOOD COUNT 5.73 M/UL (4.70-6.10); RED CELL DISTRIBUTION WIDTH 11.5 % (11.6-14.8); WHITE BLOOD COUNT 8.1 K/UL (4.8-10.8)
[2019-01-30 07:47] LABS: ANION GAP 10 mmol/L (5-15); BLOOD UREA NITROGEN 18 mg/dL (7-18); CARBON DIOXIDE 26 MMOL/L (21-32); CHLORIDE 103 MMOL/L (98-107); CREATININE 1.2 MG/DL (0.55-1.30); SODIUM 139 MMOL/L (136-145)
[2019-01-30 07:58] LABS: ALANINE AMINOTRANSFERASE 49 U/L (12-78); ALBUMIN 4.3 G/DL (3.4-5.0); ALBUMIN/GLOBULIN RATIO 1.3 (1.0-2.7); ALKALINE PHOSPHATASE 111 U/L (46-116); ASPARTATE AMINO TRANSFERASE 27 U/L (15-37); BILIRUBIN,TOTAL 1.3 MG/DL (0.2-1.0); CREATINE KINASE 100 U/L (26-308)
[2019-01-30 08:00] LABS: BILIRUBIN,DIRECT 0.2 MG/DL (0.0-0.3)
[2019-01-30 08:24] LABS: APPEARANCE,URINE CLEAR; BILIRUBIN, URINE NEGATIVE (NEGATIVE); COLOR,URINE PALE YELLOW; GLUCOSE, URINE (UA) NEGATIVE (NEGATIVE); KETONES,URINE NEGATIVE (NEGATIVE); LEUKOCYTE ESTERASE ,URINE NEGATIVE (NEGATIVE); NITRITE,URINE NEGATIVE (NEGATIVE); PH,URINE 6.5 (4.5-8.0); PROTEIN,URINE NEGATIVE (NEGATIVE); UROBILINOGEN,URINE NORMAL MG/DL (0.0-1.0)
[2019-01-30 09:20] VITALS: BP 139/110
--- NOTE | 2019-01-30 10:10 | NUR ---
ED Nurse Note: Patient resting in bed, VSS. Patient states he feels much better. He does not have abdominal pain and does not feel dizzy anymore.
[2019-01-30] MEDS ORDERED: CORTISPORIN EAR10 ML RIGHT EAR (10:47)
[2019-01-30] MEDS ORDERED: REGLAN5 MG ORAL (10:47)
[2019-01-30] MEDS ORDERED: TYLENOL325 MG ORAL (10:47)
[2019-01-30] MEDS ORDERED: AUGMENTIN 500-1 EACH ORAL (10:47)
[2019-01-30] MEDS ORDERED: MAALOX MAXIMUM355 M1 PO (10:47)
[2019-01-30 10:56] VITALS: BP 132/95
--- NOTE | 2019-01-30 13:13 | Diagnostic Imaging Report ---
Indication: Shortness of breath Technique: One view of the chest Comparison: 12/28/2018 Findings: Lungs and pleural spaces are clear. Heart size is normal. No significant change Impression: No acute process
--- NOTE | 2019-02-01 15:35 | Cardiology Report ---
APPROVED REPORT EKG Measurement Heart [id number] Normal sinus rhythm Possible Anterior infarct, age undetermined Abnormal ECG
== END 2019-01-30 10:57 | disposition home or self-care (01) ==
LOC: EMR 07:07
DX: R10.84 Generalized abdominal pain (principal); H66.004 Acute suppurative otitis media without spontaneous rupture of ear drum, recurrent, right ear; F41.9 Anxiety disorder, unspecified; R11.0 Nausea; K59.00 Constipation, unspecified; I10 Essential (primary) hypertension; K57.92 Diverticulitis of intestine, part unspecified, without perforation or abscess without bleeding
CPT/HCPCS: 36415; 71045; 80053; 80307; 81003; 82248; 82550; 83690; 83880; 84484; 85025; 85610; 85730; 93005; 96361; 96374; 96375; J1200; J2765; S0028; Z7502; 99284; J7030

== ENCOUNTER 2020-02-28 04:59 | Emergency (ER) | payer MEDICAID ==
[~2020-02-28] VITALS: Ht 177.8 cm; Wt 97.5 kg
[~2020-02-28 04:59] MED LIST changes: +AUGMENTIN 500-1 EACH ORAL; +MAALOX MAXIMUM355 M1 PO; +REGLAN5 MG ORAL; +TYLENOL325 MG ORAL
[2020-02-28 05:15] VITALS: BP 150/98
--- NOTE | 2020-02-28 05:25 | Emergency Room Report ---
History of Present Illness General Chief Complaint: Abdominal Pain Source: Patient, Significant Other, Medical Record (Ranjith Owens MD) Present Illness HPI This is a 59-year-old male with a history of diverticulitis. He get frequent exacerbation. He presents with chief complaint of left lower quadrant pain. Onset for the last 6 days. No nausea vomiting or diarrhea. No fever chills but no urinary complaint. Worse with movement. Pain is 9 out of 10. Similar symptom in the past. He hasn't had a problem in a year. 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 COVID-19 Screening: Negative COVID-19 COVID-19 Testing Source: [facility] (Ranjith Owens MD) Patient History Past Medical History: see triage record, old chart reviewed, HTN Past Surgical History: other Pertinent Family History: none Social History: Denies: smoking Immunizations: other Reviewed Nursing Documentation: PMH: Agreed; PSxH: Agreed (Ranjith Owens MD) Nursing Documentation-PMH Past Medical History: No History, Except For Hx Hypertension: Yes Hx Pacemaker: No Hx Asthma: No Hx COPD: No Hx Diabetes: No Hx Cancer: No Hx Gastrointestinal Problems: Yes - diverticulitis Hx Cerebrovascular Accident: No Hx Seizures: No (Ranjith Owens MD) Review of Systems Eye: Denies: eye pain, blurred vision ENT: Denies: ear pain, nose congestion, throat swelling Respiratory: Denies: cough, shortness of breath Cardiovascular: Denies: chest pain, palpitations Gastrointestinal: Reports: abdominal pain; Denies: diarrhea, nausea, vomiting Musculoskeletal: Denies: back pain, joint pain Skin: Denies: rash Neurological: Denies: headache, numbness Endocrine: Denies: increased thirst, increased urine Hematologic/Lymphatic: Denies: easy bruising All Other Systems: negative except mentioned in HPI (Ranjith Owens MD) Physical Exam Vital Signs Date Time Temp Pulse Resp B/P (MAP) Pulse Ox O2 Delivery O2 Flow Rate FiO2 02/28/20 05:10 97.3 89 18 146/100 (115) 96 Room Air Vitals with high blood pressure Sp02 EP Interpretation: reviewed, normal General Appearance: well appearing, no apparent distress, alert Head: normocephalic, atraumatic Eyes: bilateral eye PERRL, bilateral eye EOMI ENT: hearing grossly normal, normal pharynx Neck: full range of motion, supple, no meningismus Respiratory: chest non-tender, lungs clear, normal breath sounds Cardiovascular #1: regular rate, rhythm, no murmur Gastrointestinal: normal bowel sounds, no mass, no organomegaly, no bruit, non- distended, tenderness - Flank and left lower quadrant tenderness Musculoskeletal: back normal, normal range of motion, gait/station normal Psychiatric: mood/affect normal (Rnajith Owens MD) Medical Decision Making Diagnostic Impression: Primary Impression: Diverticulosis Additional Impression: Abdominal pain Qualified Codes: R10.32 - Left lower quadrant pain ER Course Patient presents with left lower quadrant pain. He said this is similar to his previous diverticulitis. Labs unremarkable. CT scan results pending. Patient already had endoscopy and colonoscopy and was told was unremarkable. If CT scan showed no perforation or abscess, patient can be discharged home. (Ranjith Owens MD) ER Course Patient signed out by prior attending pending CT abdomen pelvis. Patient CT results demonstrate extensive diverticulosis without evidence for acute diverticulitis. Patient's pain was well controlled with IV Dilaudid by prior attending. Labs demonstrate mild leukocytosis white count of 11,000 otherwise no significant acute abnormalities. Patient is being discharged home with tramadol. 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 After discussing risks and benefits of further diagnostics, treatment plans, as well as indications for and risks of admission, the patient is agreeable to being discharged home. I have explained that their evaluation and treatment in the emergency department today is an important step towards them achieving better health but that their evaluation today is not intended to replace further evaluation and treatment by a physician in their local clinic. I have explained that while the current findings suggest no immediate life threatening emergency they will require further evaluation and treatment by a physician of their choice in their area. They understand that it will be necessary for them to review the final reports of their ED visit with their clinic physician. We have reviewed indications for return to the Emergency Department. I have explained that additional time may need to pass and/or additional testing as an outpatient may be necessary before a definitive diagnosis can be made. They tell me they are willing to follow up as instructed within the timeframe I recommend. They a ppear to understand what we discussed. Additionally they understand that if they are unable to be seen by an outpatient physician they are welcome, and in fact should, return to the Emergency Department for a repeat evaluation. The patient is stable at time of discharge. (Enedina Morales M.D.) CT/MRI/US Diagnostic Results CT/MRI/US Diagnostic Results : Imaging Test Ordered: CT abdomen pelvis Impression Read by radiologist. Negative. (Ranjith Owens MD) Last Vital Signs Date Time Temp Pulse Resp B/P (MAP) Pulse Ox O2 Delivery O2 Flow Rate FiO2 02/28/20 05:15 89 18 Room Air 02/28/20 05:15 97.3 150/98 100 Status: improved (Ranjith Owens MD) Disposition: HOME, SELF-CARE Condition: Stable Scripts Tramadol Hcl* (ULTRAM*) 50 Mg Tablet 50 MG ORAL Q6H PRN for For Pain, #12 TAB 0 Refills Prov: Enedina Morales M.D. 02/28/20 Referrals: NON PHYSICIAN (PCP) Additional Instructions: The patient was provided with discharge instructions, notified to follow-up with a primary care doctor and or specialist in the next 24-48 hours, and to return to the ED if they have worsening of their symptoms. Please note that this report is being documented using [employer] technology. This can lead to erroneous entry secondary to incorrect interpretation by the d ictating instrument. Ranjith Owens MD Feb 28, 2020 05:25 Enedina Morales M.D. Feb 28, 2020 07:26
[2020-02-28] MEDS ORDERED: HYDROmorphone 1mg/ml Carpuject IVP ONE (05:30)
[2020-02-28 05:38] LABS: BASOPHILS % (AUTO) 1.4 % (0.0-2.0); EOSINOPHILS % (AUTO) 14.7 % (0.0-3.0); HEMATOCRIT 46.8 % (42.0-52.0); HEMOGLOBIN 16.9 G/DL (14.2-18.0); LYMPHOCYTES % (AUTO) 26.4 % (20.0-45.0); MEAN CORPUSCULAR VOLUME 83 FL (80-99); MONOCYTES % (AUTO) 6.5 % (1.0-10.0); NEUTROPHILS % (AUTO) 51.1 % (45.0-75.0); PLATELET COUNT 231 K/UL (150-450); RED BLOOD COUNT 5.64 M/UL (4.70-6.10); RED CELL DISTRIBUTION WIDTH 14.3 % (11.6-14.8); WHITE BLOOD COUNT 11.7 K/UL (4.8-10.8)
[2020-02-28 05:42] LABS: APPEARANCE,URINE CLEAR; BILIRUBIN, URINE NEGATIVE (NEGATIVE); COLOR,URINE PALE YELLOW; GLUCOSE, URINE (UA) NEGATIVE (NEGATIVE); KETONES,URINE NEGATIVE (NEGATIVE); LEUKOCYTE ESTERASE ,URINE NEGATIVE (NEGATIVE); NITRITE,URINE NEGATIVE (NEGATIVE); PH,URINE 8 (4.5-8.0); PROTEIN,URINE NEGATIVE (NEGATIVE); UROBILINOGEN,URINE NORMAL MG/DL (0.0-1.0)
[2020-02-28 05:48] LABS: CALCIUM 8.7 MG/DL (8.5-10.1); CREATININE 1.4 MG/DL (0.55-1.30); POTASSIUM 4.4 MMOL/L (3.5-5.1)
[2020-02-28 05:54] LABS: ALBUMIN 4.1 G/DL (3.4-5.0); ALBUMIN/GLOBULIN RATIO 1.2 (1.0-2.7); BILIRUBIN,TOTAL 0.7 MG/DL (0.2-1.0)
[2020-02-28 06:25] VITALS: BP 154/109
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
[2020-02-28] MEDS ORDERED: TRAMADOL HCL50 MG ORAL (07:22)
[2020-02-28 07:34] VITALS: BP 150/95
== END 2020-02-28 07:34 | disposition home or self-care (01) ==
LOC: EMR 05:10
DX: K57.90 Diverticulosis of intestine, part unspecified, without perforation or abscess without bleeding (principal); R10.32 Left lower quadrant pain; I10 Essential (primary) hypertension
CPT/HCPCS: 36415; 74176; 80053; 81003; 83690; 85025; 96361; 96374; 96375; J1170; J2405; J7030; Z7502; 99284

== ENCOUNTER 2020-05-13 16:29 | Emergency (ER) | payer MEDICAID ==
[~2020-05-13] VITALS: Ht 177.8 cm; Wt 94.3 kg
--- NOTE | 2020-05-13 16:58 | Emergency Room Report ---
History of Present Illness General Chief Complaint: Abdominal Pain Source: Patient Present Illness HPI Disclaimer: Please note that this report is being documented using [employer] technology. This can lead to erroneous entry secondary to incorrect interpretation by the dictating instrument. HPI: 59-year-old male history of diverticular disease presents for evaluation of abdominal pain and loose stools. Symptoms present 2 weeks and worsening. Patient states he saw his sales and support center agent 2 weeks ago and had an outpatient CT scan which showed uncomplicated diverticular disease. He is scheduled for colonoscopy next week. Already had an EGD. States his abdominal pain is not well controlled. Denies fever or chills. Denies nausea or vomiting. Denies chest pain or palpitations. Pain is localized in the upper abdomen. Worse with bending and twisting motion. He reports increased gas and belching. 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 EOMI. Cardiovascular: RRR. S1 and S2 normal. No murmur appreciated Resp: Normal work of breathing. No cough, wheezing or crackles appreciated Abdomen: Abdomen is soft, nondistended. Tender to palpation diffusely. No guarding. No peritoneal sign Skin: Intact. No abrasions, laceration or rash over the exposed skin MSK: Normal tone and bulk. Moving all extremities. No obvious deformity. Neuro: Awake and alert. Mentating appropriately. Medical Decision Making Diagnostic Impression: Primary Impression: Abdominal pain Additional Impressions: Diverticulosis Back spasm ER Course 59-year-old male history of diverticular disease presents for abdominal pain. Given the recent CT scan the patient does not want more radiation at this time. He reportedly is uncomplicated diverticular disease. Consistent with prior CT scan at our facility. Labs returned within normal limits. He felt better after receiving pain medication. Patient will follow up with his sales and support center agent outpatient basis. Planning surgery. Instructed to return with new or worsening symptoms at which time we can perform another CT scan however at this time the patient is improved and does not have evidence of an acute abdomen. Stable for outpatient follow-up with strict return precautions. He understands agrees with this treatment plan. Laboratory Tests Test 05/13/20 17:05 White Blood Count 8.5 K/UL (4.8-10.8) Red Blood Count 5.46 M/UL (4.70-6.10) Hemoglobin 16.1 G/DL (14.2-18.0) Hematocrit 47.3 % (42.0-52.0) Mean Corpuscular Volume 87 FL (80-99) Mean Corpuscular Hemoglobin 29.4 PG (27.0-31.0) Mean Corpuscular Hemoglobin Concent 34.0 G/DL (32.0-36.0) Red Cell Distribution Width 12.3 % (11.6-14.8) Platelet Count 207 K/UL (150-450) Mean Platelet Volume 8.9 FL (6.5-10.1) Neutrophils (%) (Auto) 58.4 % (45.0-75.0) Lymphocytes (%) (Auto) 31.5 % (20.0-45.0) Monocytes (%) (Auto) 7.1 % (1.0-10.0) Eosinophils (%) (Auto) 1.4 % (0.0-3.0) Basophils (%) (Auto) 1.6 % (0.0-2.0) Urine Color Pale yellow Urine Appearance Clear Urine pH 7 (4.5-8.0) Urine Specific [place] 1.010 (1.005-1.035) Urine Protein Negative (NEGATIVE) Urine Glucose (UA) Negative (NEGATIVE) Urine Ketones 1+ (NEGATIVE) H Urine Blood Negative (NEGATIVE) Urine Nitrite Negative (NEGATIVE) Urine Bilirubin Negative (NEGATIVE) Urine Urobilinogen Normal MG/DL (0.0-1.0) Urine Leukocyte Esterase Negative (NEGATIVE) Sodium Level 140 MMOL/L (136-145) Potassium Level 3.7 MMOL/L (3.5-5.1) Chloride Level 102 MMOL/L (98-107) Carbon Dioxide Level 26 MMOL/L (21-32) Anion Gap 12 mmol/L (5-15) Blood Urea Nitrogen 20 mg/dL (7-18) H Creatinine 1.2 MG/DL (0.55-1.30) Estimated Glomerular Filtration Rate > 60 mL/min (>60) Glucose Level 98 MG/DL (74-106) Calcium Level 9.7 MG/DL (8.5-10.1) Total Bilirubin 1.5 MG/DL (0.2-1.0) H Direct Bilirubin 0.3 MG/DL (0.0-0.3) Aspartate Amino Transferase (AST) 32 U/L (15-37) Alanine Aminotransferase (ALT) 35 U/L (12-78) Alkaline Phosphatase 95 U/L (46-116) Total Protein 7.9 G/DL (6.4-8.2) Albumin 4.6 G/DL (3.4-5.0) Globulin 3.3 g/dL Albumin/Globulin Ratio 1.4 (1.0-2.7) Lipase 260 U/L (73-393) Last Vital Signs Date Time Temp Pulse Resp B/P (MAP) Pulse Ox O2 Delivery O2 Flow Rate FiO2 05/13/20 16:44 98.1 87 17 152/87 (108) 99 Room Air Disposition: HOME, SELF-CARE Condition: Stable Scripts Lidocaine (Lidocaine) 1 Each Adh..patch 700 MG TP DAILY, #20 PATCH Prov: Yasmany Rosado MD 05/13/20 Methocarbamol* (ROBAXIN-750*) 750 Mg Tablet 750 MG PO QID, #28 TAB 0 Refills Prov: Yasmany Rosado MD 05/13/20 Tramadol Hcl* (ULTRAM*) 50 Mg Tablet 50 MG ORAL Q6H PRN for For Pain, #12 TAB 0 Refills Prov: Yasmany Rosado MD 05/13/20 Amoxicillin/Potassium Clav 875-125* (AUGMENTIN 875-125 TABLET*) 1 Each Tablet 1 TAB ORAL TWICE A DAY for 10 Days, #20 TAB Prov: Yasmany Rosado MD 05/13/20 Yasmany Rosado MD May 13, 2020 16:58
[2020-05-13] MEDS ORDERED: Omnipaque-300 100ml vial INJ PRN (17:00)
[2020-05-13] MEDS ORDERED: HYDROmorphone 1mg/ml Carpuject IVP ONE (17:00)
[2020-05-13 17:06] VITALS: BP 124/83
[2020-05-13] MEDS ORDERED: HYDROcodone/Acetamin 7.5/325 tab ORAL ONE (17:15)
[2020-05-13 17:19] LABS: BASOPHILS % (AUTO) 1.6 % (0.0-2.0); EOSINOPHILS % (AUTO) 1.4 % (0.0-3.0); HEMATOCRIT 47.3 % (42.0-52.0); HEMOGLOBIN 16.1 G/DL (14.2-18.0); LYMPHOCYTES % (AUTO) 31.5 % (20.0-45.0); MEAN CORPUSCULAR VOLUME 87 FL (80-99); MONOCYTES % (AUTO) 7.1 % (1.0-10.0); NEUTROPHILS % (AUTO) 58.4 % (45.0-75.0); PLATELET COUNT 207 K/UL (150-450); RED BLOOD COUNT 5.46 M/UL (4.70-6.10); RED CELL DISTRIBUTION WIDTH 12.3 % (11.6-14.8); WHITE BLOOD COUNT 8.5 K/UL (4.8-10.8)
[2020-05-13 17:24] LABS: APPEARANCE,URINE CLEAR; BILIRUBIN, URINE NEGATIVE (NEGATIVE); COLOR,URINE PALE YELLOW; GLUCOSE, URINE (UA) NEGATIVE (NEGATIVE); KETONES,URINE 1+ (NEGATIVE); LEUKOCYTE ESTERASE ,URINE NEGATIVE (NEGATIVE); NITRITE,URINE NEGATIVE (NEGATIVE); PH,URINE 7 (4.5-8.0); PROTEIN,URINE NEGATIVE (NEGATIVE); UROBILINOGEN,URINE NORMAL MG/DL (0.0-1.0)
[2020-05-13 17:44] LABS: ANION GAP 12 mmol/L (5-15); BLOOD UREA NITROGEN 20 mg/dL (7-18); CALCIUM 9.7 MG/DL (8.5-10.1); CARBON DIOXIDE 26 MMOL/L (21-32); CHLORIDE 102 MMOL/L (98-107); CREATININE 1.2 MG/DL (0.55-1.30); POTASSIUM 3.7 MMOL/L (3.5-5.1); SODIUM 140 MMOL/L (136-145)
[2020-05-13 17:54] LABS: ALANINE AMINOTRANSFERASE 35 U/L (12-78); ALBUMIN 4.6 G/DL (3.4-5.0); ALBUMIN/GLOBULIN RATIO 1.4 (1.0-2.7); ALKALINE PHOSPHATASE 95 U/L (46-116); ASPARTATE AMINO TRANSFERASE 32 U/L (15-37); BILIRUBIN,TOTAL 1.5 MG/DL (0.2-1.0)
[2020-05-13 18:01] LABS: BILIRUBIN,DIRECT 0.3 MG/DL (0.0-0.3)
[2020-05-13] MEDS ORDERED: TRAMADOL HCL50 MG ORAL (18:08)
[2020-05-13] MEDS ORDERED: AUGMENTIN 875-1 EAC1 ORAL (18:08)
[2020-05-13] MEDS ORDERED: LIDOCAINE700 M1 TP (18:08)
[2020-05-13] MEDS ORDERED: ROBAXIN-750750 MG PO (18:08)
[2020-05-13 18:24] VITALS: BP 145/76
== END 2020-05-13 18:27 | disposition home or self-care (01) ==
LOC: EMR 17:00
DX: K57.90 Diverticulosis of intestine, part unspecified, without perforation or abscess without bleeding (principal); R10.10 Upper abdominal pain, unspecified; M62.830 Muscle spasm of back; I10 Essential (primary) hypertension
CPT/HCPCS: 36415; 80053; 81003; 82248; 83690; 85025; Z7502; 99284

== ENCOUNTER 2020-06-13 10:22 | Emergency (ER) | payer MEDICAID ==
[~2020-06-13] VITALS: Ht 182.9 cm; Wt 95.3 kg
[~2020-06-13 10:22] MED LIST changes: +AUGMENTIN 875-1 EAC1 ORAL; +LIDOCAINE700 M1 TP
--- NOTE | 2020-06-13 10:37 | NUR ---
pt arrives to ER with complaint of right upper abdominal pain. pt states symptoms began 4 days ago.pt states vomiting with abdominal pain. pt describes pain as sharp spasm radiating to his mid right back. pt states history of diverticulitis, cholecystecomy, and 2 pelvic hernia. pt AAOX4. vital stable at this time. pt denies diarrhea, blood in stools or burning with urination. pt states taking laxatives 2 days ago for constipation.
[2020-06-13 10:55] LABS: APPEARANCE,URINE CLEAR; BILIRUBIN, URINE NEGATIVE (NEGATIVE); GLUCOSE, URINE (UA) NEGATIVE (NEGATIVE); KETONES,URINE 3+ (NEGATIVE); LEUKOCYTE ESTERASE ,URINE NEGATIVE (NEGATIVE); NITRITE,URINE NEGATIVE (NEGATIVE); PH,URINE 6 (4.5-8.0); PROTEIN,URINE NEGATIVE (NEGATIVE); UROBILINOGEN,URINE NORMAL MG/DL (0.0-1.0)
[2020-06-13 10:56] LABS: BASOPHILS % (AUTO) 1.6 % (0.0-2.0); EOSINOPHILS % (AUTO) 1.2 % (0.0-3.0); HEMATOCRIT 51.1 % (42.0-52.0); HEMOGLOBIN 17.1 G/DL (14.2-18.0); LYMPHOCYTES % (AUTO) 31.4 % (20.0-45.0); MEAN CORPUSCULAR VOLUME 86 FL (80-99); MONOCYTES % (AUTO) 8.5 % (1.0-10.0); NEUTROPHILS % (AUTO) 57.3 % (45.0-75.0); PLATELET COUNT 208 K/UL (150-450); RED BLOOD COUNT 5.94 M/UL (4.70-6.10); RED CELL DISTRIBUTION WIDTH 12.4 % (11.6-14.8); WHITE BLOOD COUNT 8.5 K/UL (4.8-10.8)
[2020-06-13 10:58] LABS: COLOR,URINE YELLOW
[2020-06-13] MEDS ORDERED: Ketorolac 30mg Inj IV ONE (11:00)
[2020-06-13 11:03] LABS: INR 1.2 (0.9-1.1)
[2020-06-13 11:04] LABS: ANION GAP 11 mmol/L (5-15); BLOOD UREA NITROGEN 16 mg/dL (7-18); CARBON DIOXIDE 27 MMOL/L (21-32); CHLORIDE 102 MMOL/L (98-107); CREATININE 1.4 MG/DL (0.55-1.30); POTASSIUM 3.9 MMOL/L (3.5-5.1); SODIUM 140 MMOL/L (136-145)
[2020-06-13 11:05] VITALS: BP 128/95
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
[2020-06-13 11:15] LABS: ALANINE AMINOTRANSFERASE 34 U/L (12-78); ALBUMIN 4.7 G/DL (3.4-5.0); ALBUMIN/GLOBULIN RATIO 1.5 (1.0-2.7); ALKALINE PHOSPHATASE 101 U/L (46-116); ASPARTATE AMINO TRANSFERASE 28 U/L (15-37); BILIRUBIN,TOTAL 1.7 MG/DL (0.2-1.0); CREATINE KINASE 299 U/L (26-308)
[2020-06-13 11:16] LABS: BILIRUBIN,DIRECT 0.4 MG/DL (0.0-0.3)
--- NOTE | 2020-06-13 11:26 | Diagnostic Imaging Report ---
EXAM: XR Chest, 1 View CLINICAL HISTORY: ABD PAIN TECHNIQUE: Frontal view of the chest. COMPARISON: No relevant prior studies available. FINDINGS: Lungs: No consolidation. Pleural space: Unremarkable. No pneumothorax. Heart: Unremarkable. Mediastinum: Unremarkable. Bones/joints: No acute fracture. IMPRESSION: No confluent consolidation.
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
[2020-06-13] MEDS ORDERED: FAMOTIDINE20 MG ORAL (11:50)
[2020-06-13] MEDS ORDERED: ONDANSETRON ODT4 MG BC (11:50)
[2020-06-13] MEDS ORDERED: HYDROCODON-ACE1 EA15 ORAL (11:50)
[2020-06-13 12:01] VITALS: BP 140/75
== END 2020-06-13 12:02 | disposition home or self-care (01) ==
LOC: EMR 11:06
DX: R11.14 Bilious vomiting (principal); R07.9 Chest pain, unspecified; Z90.49 Acquired absence of other specified parts of digestive tract; I10 Essential (primary) hypertension
CPT/HCPCS: 36415; 71045; 74018; 80053; 81003; 82248; 82550; 83690; 84484; 85025; 85610; 85730; 93005; 96361; 96374; 96375; J1885; J2405; J7030; Z7502; 99284